=== PATIENT | male | born 1950 | race Caucasian/White ===

== ENCOUNTER 2016-09-04 21:21 | Inpatient (IN) | payer OTHER ==
--- NOTE | ~2016-09-04 | HP ---
Unit #: [id number] #: [id number] Patient: FRANK PLATT [id number] [address] [address] [id number] I MR#: [id number] NAME: FRANK PLATT. ROOM: 461 Age: 66 Sex: M Admission Date: 09/05/2016 : 1950 Attending Physician: Laquita Weston M.D. Primary Care Physician: Ibis Casiano M.D., Ph.D. HISTORY AND PHYSICAL ADMISSION DIAGNOSES 1. Questionable GI bleed. 2. Esophageal cancer. 3. History of hep. C with cirrhosis. 4. Colitis. 5. Active smoker. 6. History of peptic ulcer disease. HISTORY OF PRESENT ILLNESS Mr. Platt is a 66-year-old, gentleman with a history of esophageal cancer, status post chemo, who comes to the emergency room with the complaints of dark stools and some bloody emesis for last day or so. Denies any fever or chills. Denies any chest pain, headache, or dizziness. Denies any abdominal pain or diarrhea. REVIEW OF SYSTEMS So, 12-point review of systems on this patient is basically negative, except as above. PAST MEDICAL HISTORY Significant for esophageal cancer, history of hep. C cirrhosis, and peptic ulcer disease. PAST SURGICAL HISTORY Significant for scopes and IV port placement for chemotherapy. MEDICATIONS Home medication list includes: 1. Keflex. 2. Diflucan. 3. Reglan. 4. Pepcid. ALLERGIES No known drug allergies. SOCIAL HISTORY Unfortunately, he is an active smoker and has been an active smoker all his life. Denies any alcohol or illicit drugs. FAMILY HISTORY Unremarkable. PHYSICAL EXAMINATION Unit #: [id number] #: [id number] Patient: FRANK PLATT GENERAL APPEARANCE: Patient is a 66-year-old, well appearing, gentleman otherwise. VITAL SIGNS: BP 125/77, heart rate 100, respirations 18, and temperature 98.1. HEENT: Head is atraumatic. Pupils equal, round, and reactive to light. Extraocular muscles intact. Oropharynx clear. NECK: Supple. No masses, no JVD, and no bruits. CHEST: Diminished bilaterally. CARDIOVASCULAR: S1 and S2. No murmurs. ABDOMEN: Soft, nontender, and nondistended. Bowel sounds diminished. LOWER EXTREMITIES: No cyanosis, clubbing, or edema. NEUROLOGIC: Patient alert and oriented. Answering questions appropriated. No focal deficits. DIAGNOSTIC STUDIES LABORATORY: AST and ALT elevated at 193 and 109. PT 12.3, INR 1.2, and PTT 29.4. Serial cardiac enzymes negative. White count 10.8, H and H 14 and 42, and platelets 117. Chemistry otherwise unremarkable. IMAGING: CT abdomen and pelvis as well as chest show some worsening metastatic disease with some mediastinal lymphadenopathy and thickening of the colon from ascending colon through the splenic flexure compatible with colitis along with the, again, worsening metastatic adenopathy. No bowel obstruction seen. Metastatic disease at T9 involving the left transverse process and extending in the central canal, which is grossly stable. ASSESSMENT AND PLAN 1. Question of upper GI bleed. Continue IV PPI, status post GI evaluation. Follow up on the plans for scope. 2. History of esophageal, status post chemo, status post IV port. Hematology/oncology has been consulted. 3. History of hep. C cirrhosis. 4. Colitis. Continue Levaquin and Flagyl. 5. Active smoker, counseled on importance of quitting. 6. History of peptic ulcer disease on PPI. 7. GI and DVT prophylaxes on PPI and SCDs. PLAN 1. Follow up on heme/onc input regarding worsening metastatic disease. 2. Follow up on GI plans. 3. Continue IV PPI. 4. Continue IV antibiotics. Dictated by Timmy Bal M.D. OC/shanelle TD: 09/06/2016 09:14 JOB #: [id number] Unit #: [id number] #: [id number] Patient: FRANK PLATT HISTORY AND PHYSICAL X Timmy Bal MD HISTORY AND PHYSICAL
--- NOTE | ~2016-09-04 | OR ---
Unit #: [id number] #: [id number] Patient: FRANK HUTSON [id number] [address] [place], [place] [address] [id number] Bakari MR#: [id number] NAME: FRANK HUTSON. ROOM: [facility] Date of Procedure: 09/11/2016 Admission Date: 09/05/2016 Surgeon: Marline Adam M.D. : 1950 Attending Physician: Laquita Weston M.D. Primary Care Physician: Ibis Casiano M.D., Ph.D. OPERATIVE REPORT PREOPERATIVE DIAGNOSIS Urethral stricture with obstruction. POSTOPERATIVE DIAGNOSIS Urethral stricture with obstruction. PROCEDURES PERFORMED Cystoscopy with dilation of urethral stricture and placement of a 16-Djiboutian Dukes catheter. FINDINGS A bulbourethral stricture and large false passage. It was dilated up to 18-Djiboutian and then a 16-Djiboutian catheter was placed. HISTORY OF PRESENT ILLNESS This is a 66-year-old gentleman, who is currently admitted for esophageal cancer. He is undergoing chemo and radiation. The patient has had no urine output for over 24 hours. A Dukes catheter was placed, but it was obviously not in his bladder. Urology was consulted for his anuria. On the floor, I attempted to place a Dukes catheter. I was unable to do so. I felt fairly dense urethral stricture, so the patient was brought to the operating room for cystoscopy and catheter placement. Informed consent was obtained after risks and benefits were explained. DESCRIPTION OF PROCEDURE Following proper identification, the patient was brought to the cysto suite, where he was placed in a supine position. He was prepped and draped in normal sterile fashion. I began by looking at the patient's urethra up to a fairly dense stricture in his bulbourethra and there was a large false passage, most likely where the previously Dukes catheters had been blown up in his urethra. I was able to get a sensor wire to get past the stricture. I then dilated up to 18-Djiboutian. I was able to then look by scoping into the patient's bladder ensuring that the Sensor wire was in there, and then I placed a 16-Djiboutian Councill tip catheter over the wire. Dark spring urine was obtained. The balloon was blown up in the patient's bladder and he was taken to the recovery room in good condition. Dictated byOvidio Adam M.D. CJG/modl Unit #: [id number] #: [id number] Patient: FRANK HUTSON TD: 09/12/2016 18:59 JOB #: [id number] OPERATIVE REPORT X Joanie Adam MD PROCEDURE OPERATIVE NOTE
--- NOTE | ~2016-09-04 | CR72 ---
[facility] A Service of [facility] & [facility] RADIOLOGY TEXT RESULTS PATIENT: FRANK HUTSON LOCATION: [address] : [birth year] UNIT #: [id number] AGE: [address]: Laquita Weston MD SEX: M ORDER DR: [id number] [facility] [address] [facility]. [place], [place] [address] [id number] I MR#: [id number] Acc #: [id number] NAME: FRANK HUTSON : 1950 SEX: M STUDY DATE/TIME: 09/21/2016 4:37 UNIT: [facility] ROOM: [facility] [place] [place] STUDY DESCRIPTION: CR Chest Single View Portable Attending Physician: Laquita Weston M.D. Ordering Physician: Donald Jaed M.D. Primary Care Physician: Ibis Casiano M.D., Ph.D. MEDICAL IMAGING REPORT This report is preliminary unless electronic signature is present EXAM AP portable chest 09/21/2016 at 04:37. HISTORY Respiratory failure. Shortness of breath. Weakness. Symptoms began 09/05/2016. Colitis. Hepatitis C. Cirrhosis. COMPARISON AP portable chest 09/19/2016. FINDINGS Low volume inspiration. Ill-defined interstitial thickening within both lungs, may be slightly increased in the right perihilar and bibasilar distribution. Esophagogastric stent in place through which a Dobbhoff tube extends, similar to prior. Left arm-approach PICC and right chest wall laxmi catheter unchanged. No definite pleural effusion or pneumothorax. Heart size is stable. IMPRESSION 1. Bilateral interstitial infiltrates again noted, left greater than right. It appears slightly increased in the right fhz-tq-mjatl lung zone compared to 09/19/2016. Dictated by... Aida Scott M.D. THIS IS AN ELECTRONICALLY VERIFIED REPORT Aida Scott M.D. at 09/21/2016 9:58 PM LLH/gz TD: 09/21/2016 13:16 JOB #: [id number] [facility] A Service of [facility] & [facility] RADIOLOGY TEXT RESULTS PATIENT: FRANK HUTSON LOCATION: [address] : [birth year] UNIT #: [id number] AGE: [address]: Laquita Weston MD SEX: M ORDER DR: MEDICAL IMAGING REPORT COPY
--- NOTE | ~2016-09-04 | FU ---
[facility] Nutrition Therapy DATE: 09/18/16 Patient: FRANK HUTSON Physician: LEXI Address: [address] [place] [address] Room/Bed: [address], Zip: [place] [address] Admit Date: 09/05/16 Date of : [birth year] Height: 5 11 Weight: 159 72.5 NUTRITION MONITORING/FOLLOW-UP: Reason: Enteral nutrition follow-up Anthropometrics: Ht: 71", admission wt: 54.4 kg, current wt: 72.5 kg (159 lbs) Weights have ranged from 119-159 lbs since admission, note fluid fluctuations Will restimate nutritional needs based on weight average (63.2 kg) Labs: Glucose 117, Na 134 Meds: Reglan, D5%, Phenergan/Zofran, PPI, KCL, NACL, MGSO4, Levophed I&O's: 1004/410, last BM 09/17 x 2, abdomen distended and tender Skin: No change, generalized-2+ edema noted Re-estimated Nutrition Needs: 4471-9621 kcals per day (30-35 kcals/kg weight average) 76-95 g protein per day (1.2-1.5 g/kg weight average) Fluids consistent with kcal needs or per MD Assessment: Chart reviewed, events noted. See new estimated needs above based on average weights since admission, patient has had fluctuations in weight. Does not appear initial documented BMI of 16.7, BMI appears more consistent with current weight (22.2). Patient remains on high-flow for increased oxygen needs and enteral nutrition now at goal rate with Vital 1.5 @ 55 ml/hr, providing 81% of goal volume the past 24 hours (nutrition goal met) per pump history. 30 ml residuals noted, RN states patient is tolerating feeds. Patient is drinking some PO but not eating solids PO. He is A/O, very poor prognosis, hospice and Da have been consulted. Of note, the patient has refused all ONS. Nutrition diagnosis remains, do not expect it will improve as the patient is not taking PO food; previous nutrition goal related to PO intake no longer relevant. See recs below, will continue to follow. Dx: Inadequate oral intake r/t clinical condition, dx AEB need for enteral nutrition as primary means of nutrient intake - ACTIVE Intervention: None at this time Monitoring, Evaluation and Goals: MET; goals depending on further plan of care 1. EN to provide > 80% goal volume x 24 hours. 2. Lytes, glucose WNL. 3. Prevent unintentional weight loss. [facility] Nutrition Therapy DATE: 09/18/16 Patient: FRANK HUTSON Physician: LEXI Address: [address] [place] [address] Room/Bed: [address], Zip: [place] [address] Admit Date: 09/05/16 Date of : [birth year] Height: 5 11 Weight: 159 72.5 Monitor: Per protocol, criteria to determine if above goals met Recommendations: Continue enteral nutrition with Vital 1.5 @ goal rate of 55 ml/hr as primary means of nutrient intake, as the patient is not taking food PO at this time. Allow PO drinks as desired. Patient has refused all oral nutrition supplements. This enteral nutrition regimen will provide 1980 kcals, 89 g protein and 1003 ml water (meets 100% of nutritional needs). Free water flushes per RD will continue to follow hospital course. If the patient goes to inpatient hospice enteral feeds will be per patient/family wishes. Status: Moderate nutrition risk Respectfully, Lenore Dorman, MANISH, LD Food and Nutritional Services [facility] cc: client file
--- NOTE | ~2016-09-04 | FU ---
[facility] Nutrition Therapy DATE: 09/23/16 Patient: FRANK HUTSON Physician: LEXI Address: [address] [place] [address] Room/Bed: [address], Zip: [place] [address] Admit Date: 09/05/16 Date of : [birth year] Height: 5 11 Weight: 166 75.5 NUTRITION MONITORING/FOLLOW-UP: Reason: PT SEEN FOR FOLLOW-UP/ENTERAL NUTRITION SUPPORT DX: COLITIS, UPPER GI BLEED Anthropometrics: 5'11", WT: 166# (75 KG), BMI: 23.1 -WEIGHTS HAVE RANGED 119-166# Labs: GLU: 189, BUN: 70, ALB: 2.0, AST: 273, ALT: 300, K+:5.4, NA+:131 Meds: SOLU-MEDROL, PROTONIX, PHENERGAN, ZOFRAN, NACL I&O's: 1341/7, 1 BM NOTED Skin: ISSUES NOTED EDEMA: PEDAL/ANKLE 2+ PITTING EDEMA; UPPER LEGS GENERALIZED EDEMA Estimated Nutrition Needs: 7624-7946 KCAL 76-95 G PRO Assessment: CHART REVIEWED AND EVENTS NOTED. PT SEEN FOR ENTERAL NUTRITION SUPPORT FOLLOW-UP. PT CURRENTLY RECEIVING FULL LIQUID DIET, ALTERNATIVE NUTRITION SUPPORT CURRENTLY OFF 2' HIGH RESIDUALS NOTED (~250-800 ML/RESIDUALS). PER RN AND CHART, PLANS FOR PT/FAMILY TO MEET WITH HOSPICE LATER TODAY. NO FAMILY IN ROOM AT TIME OF VISIT. THIS RD ENCOURAGED SLOW GRADUAL PO INTAKE + SUPPLEMENT INTAKE, PT AGREED TO GLUCERNA SHAKES BID. PT REPORTED NO DIET QUESTIONS AT THIS TIME. RD TO CONTINUE TO FOLLOW. SEE RECOMMENDATIONS BELOW. Dx: INADEQUATE ORAL INTAKE R/T CURRENT CLINICAL CONDITION AEB NEED FOR ENTERAL NUTRITION PRIMARY MEANS OF NUTRITION.-IN PROGRESS Intervention: 1. ENTERAL NUTRITION SUPPORT CURRENTLY OFF 2. FULL LIQUID DIET 3. GLUCERNA SHAKES BID Monitoring, Evaluation and Goals: GOALS NOT MET 1. PO INTAKE; CONSUME >50% OF MEALS/SUPPLEMENTS W/NO C/O N/V/D 2. ENTERAL NUTRITION SUPPORT; PROVIDE ~80-100% ESTIMATED NUTRIENT NEEDS 3. LABS; WNL 4. GI; PROMOTE REGULAR GI FUNCTION MONITOR: -PO INTAKE/APPETITE [facility] Nutrition Therapy DATE: 09/23/16 Patient: FRANK Vo CARYL Physician: LEXI Address: [address] [place] [address] Room/Bed: [address], Zip: [place] [address] Admit Date: 09/05/16 Date of : [birth year] Height: 5 11 Weight: 166 75.5 -DIET ADVANCEMENT -TF INITIATION -TF RATE/RESIDUALS -WEIGHTS -LABS Recommendations: 1. ORDER BIJAL GLUCERNA SHAKES BID W/MEALS 2. ONCE PT ABLE TO TOLERATE PO INTAKE, ADVANCE DIET TOLERATED TO REGULAR 3. IF PT CONTINUES MINIMAL PO INTAKE, RE-START ENTERAL NUTRITION SUPPORT OF VITAL 1.5 @ 20 ML/HR, ADVANCE 10 ML q 8 HOURS TO GOAL RATE OF 55 ML/HR -PROVIDES 1980 KCAL, 89 G PRO, 1003 ML FREE H20 FLUSHES ADD FREE H20 FLUSHES PER MD 2' HYPONATREMIA NOTED RD WILL F/U PER PROTOCOL PT IS MOD/SEVERELY COMPROMISED Respectfully, RYAN PANCHAL MS, RD, LD Food and Nutritional Services [facility] cc: client file
--- NOTE | ~2016-09-04 | FU ---
[facility] Nutrition Therapy DATE: 09/10/16 Patient: FRANK HUTSON Physician: LEXI Address: [address] [place] [address] Room/Bed: [address] [place] [address], Zip: [place] [address] Admit Date: 09/05/16 Date of : [birth year] Height: 5 11 Weight: 119 54.43 NUTRITION MONITORING/FOLLOW-UP: Reason: NUTRITION FOLLOW UP Anthropometrics: HT: 5'11" ADM WT: 54.43 KG BMI: 16.7 IBW: 78.2 KG, 70% IBW Labs: K+ 3.1 Cl- 112 Gluc 116 Alb 1.7 AST 184 ALT 113 Meds: D5%, protonix, zofran, phenergan, NaCl I&O's: 120/325, last BM 09/09 Skin: noted, no changes Edema: none noted Estimated Nutrition Needs: 1684-9244 kcals (35-40 kcals/kg) 81-108 grams protein (1.5-2.0 grams/kg) Diet: Full liquid Assessment: Chart reviewed, events noted. Per MD note on 09/09, pt has a mild ileus. Pt has was placed on clear liquids, now back on full liquids with Ensure ordered QID. clinical trials manager and RN both report that the pt is drinking Ensure slowly, and not consuming anything else thus far. RD spoke with the pt at bedside. Pt reports that if he tolerates this Ensure, he will order another one. Pt is agreeable to try Magic cup as an additional supplement. Pt will likely not eat enough on a full liquid diet to meet his increased nutrient needs. Dx: Inadequate protein-energy intake RT increased nutrient needs, cancer AEB weight loss, poor intake, 20% body weight loss in 2-3 months, BMI 16.7, 70% IBW. Intervention: 1. Full liquid diet 2. Advance to regular diet as tolerated/ ordered by MD 3. Ensure QID 4. Magic cup TID Monitoring, Evaluation and Goals: GOALS NOT MET 1. Oral intake; tolerate >50-75% meals and supplements 2. Weight; promote weight gain, prevent further weight loss [facility] Nutrition Therapy DATE: 09/10/16 Patient: FRANK HUTSON Physician: NIGKUS Address: [address] [place] [address]/Bed: [address] [place] [address], Zip: [place] [address] Admit Date: 09/05/16 Date of : [birth year] Height: 5 11 Weight: 119 54.43 3. Skin; prevent breakdown 4. GI; promote regular GI function Recommendations: 1. Continue full liquid diet as tolerated. If the pt continues to tolerate full liquids, consider advancing to a low fiber diet as tolerated. 2. Continue Ensure QID (strawberry) and add Magic Cup TID for supplemental nutrition. 3. Consider enteral nutrition if appropriate per pt/ MD discretion. See RD nutrition assessment dated 09/05/16 for enteral nutrition recommendations if indicated. Status: Pt is at moderate-severe nutritional risk. RD will continue to follow. Respectfully, GRUPO SANON RD, LD Food and Nutritional Services [facility] cc: client file
--- NOTE | ~2016-09-04 | US140 ---
[facility] A Service of [facility] & [facility] RADIOLOGY TEXT RESULTS PATIENT: FRANK HUTSON LOCATION: [address] : [birth year] UNIT #: [id number] AGE: [address]: Laquita Weston MD SEX: M ORDER DR: [id number] [facility] [address] [place], [place] [address] [id number] MR#: [id number] Acc #: [id number] NAME: FRANK HUTSON : 1950 SEX: M STUDY DATE/TIME: 09/16/2016 7:43 UNIT: [facility] ROOM: [facility] STUDY DESCRIPTION: US UE Veins Unilat or Ltd Stdy Attending Physician: Laquita Weston M.D. Ordering Physician: Ayaka Baires M.D. Primary Care Physician: Ibis Casiano M.D., Ph.D. MEDICAL IMAGING REPORT This report is preliminary unless electronic signature is present EXAM Right upper extremity venous duplex Doppler INDICATION Right upper extremity swelling. Right-sided port catheter. Swelling for 2 days. FINDINGS Hong-scale and color Doppler ultrasound of the right upper extremity was performed. There is no deep vein thrombus in the right upper extremity. The right internal jugular vein, subclavian vein, axillary vein, and brachial veins are patent. There is a superficial venous thrombus in the right cephalic vein. Remaining superficial veins are patent. IMPRESSION 1. Negative for deep vein thrombosis. 2. Superficial venous thrombus in the right cephalic vein. STAT * RESULT Dictated by... Dex Montero M.D. THIS IS AN ELECTRONICALLY VERIFIED REPORT Dex Montero M.D. at 09/16/2016 2:03 PM Dilma TD: 09/16/2016 09:37 JOB #: [id number] MEDICAL IMAGING REPORT COPY
--- NOTE | ~2016-09-04 | CO ---
Unit #: [id number] #: [id number] Patient: FRANK HUTSON [id number] [address] [place], [place] [address] [id number] I MR#: [id number] NAME: FRANK HUTSON ROOM: 461 Age: 66 Sex: M Admission Date: 09/05/2016 : 1950 Attending Physician: Laquita Weston M.D. Primary Care Physician: Ibis Casiano M.D., Ph.D. CONSULTATION REPORT HISTORY OF PRESENT ILLNESS He is a very pleasant gentleman. He is 66 years old with a diagnosis of esophageal cancer that is metastatic with lymph node involvement. He has been on chemotherapy per Dr. Ibis Casiano. He has a stent placed in the esophagus and came into the hospital with a couple of days of nausea and vomiting, unable to keep anything ingest. The emesis that he had was black tarry-looking per them, it sounds like coffee-grounds emesis, and then he came into the hospital. In the emergency room, he was seen evaluated and admitted for further care. He has not been febrile per the family at home. He has not been shock. He has been making urine, which is good and has had no further black tarry emesis. GI has been asked to see the patient. The patient has stable vital signs here and has no fevers, chills, or sweats. PAST MEDICAL HISTORY 1. Esophageal cancer. 2. He is positive for severe protein malnutrition. 3. He is positive for colitis that we had noted on the imaging that was done when he was admitted to the hospital. 4. He has a history of GERD complaints and acid reflux since he has had an esophageal stent. SOCIAL HISTORY No active alcohol or tobacco use. His is present in the room. FAMILY HISTORY Noncontributory to current illness. REVIEW OF SYSTEMS Positive for abdominal pain. Positive for nausea and vomiting and positive for inability to keep anything ingested. A 12-points, otherwise negative on review of systems. PHYSICAL EXAMINATION GENERAL: Shows a well-developed, well-nourished gentleman in no acute distress. HEENT: His eyes show no scleral icterus. Pupils are equal. Mouth is moist. Hearing is intact. No thrush in the mouth was noted. VITAL SIGNS: His temperature is 98.5, blood pressure 119/70, heart rate 92, 96% saturation on room air, respirations 18. LUNGS: Clear. Equal breath sounds. HEART: Regular rate and rhythm. Not tachycardic. No peripheral edema. ABDOMEN: Soft, today just diffuse tenderness however. Unit #: [id number] #: [id number] Patient: FRANK HUTSON SKIN: No rashes, ulcers, or nodules. LYMPHATIC: No palpable adenopathy. NEUROLOGIC: He is afocal. PSYCHIATRIC: Answers questions appropriately, but appears ill currently. ASSESSMENT Very pleasant with diagnosis of esophageal cancer. PLAN Plan is to go ahead and see if we can get him hydrated and defer to GI. He does not appear febrile currently. He does not appear septic, but does appear a bit dehydrated and has concerning complaints of coffee-grounds emesis. We are consulted for Dr. Reza. Dictated by... Apple Garces/oriana TD: 09/06/2016 03:12 JOB #: [id number] CONSULTATION REPORT X X CONSULTATION REPORT
--- NOTE | ~2016-09-04 | CR72 ---
[facility] A Service of [facility] RADIOLOGY TEXT RESULTS PATIENT: FRANK HUTSON LOCATION: [address] : [birth year] UNIT #: [id number] AGE: [address]: Laquita Weston MD SEX: M ORDER DR: [id number] [facility] [address] [place], [place] [address] [id number] I MR#: [id number] Acc #: [id number] NAME: FRANK HUTSON : 1950 SEX: M STUDY DATE/TIME: 09/14/2016 04:37 UNIT: [facility] ROOM: [facility] STUDY DESCRIPTION: CR Chest Single View Portable Attending Physician: Laquita Weston M.D. Ordering Physician: Ayaka Baires M.D. Primary Care Physician: Ibis Casiano M.D., Ph.D. MEDICAL IMAGING REPORT This report is preliminary unless electronic signature is present EXAM Portable chest, 09/14 at 04:37 INDICATION Hypoxia, shortness of air. Respiratory failure. History of esophageal cancer, cirrhosis and smoking. FINDINGS AP portable views of the chest are compared with 09/13/2016. Left arm PICC in the SVC. Port-A-Cath tip in the SVC. Heart size stable. There is emphysema with coarse bilateral infiltrates which are not appreciably changed and probably reflect pneumonia. Edema could be present as well. No pneumothorax. Lower esophageal stent is again seen. Dictated by... Josh Sharp Jr., M.D. THIS IS AN ELECTRONICALLY VERIFIED REPORT Josh Sharp Jr., M.D. at 09/14/2016 9:33 PM LENCHO/akren TD: 09/14/2016 17:08 JOB #: [id number] MEDICAL IMAGING REPORT COPY
--- NOTE | ~2016-09-04 | CO ---
Unit #: [id number] #: [id number] Patient: FRANK PLATT [id number] [address] [place], [place] [address] [id number] MR#: [id number] NAME: FRANK PLATT ROOM: [facility] Age: 66 Sex: M Admission Date: 09/05/2016 : 1950 Attending Physician: Laquita Weston M.D. Primary Care Physician: Ibis Casiano M.D., Ph.D. CONSULTATION REPORT REASON FOR CONSULTATION Probable IL. HISTORY OF PRESENT ILLNESS Mr. Platt is a 66-year-old white male whom we are asked to see because of elevated troponin levels. The patient is a very poor historian because he is acutely ill, cannot concentrate on the questions, and probably does not know the true extent of his illness. He thinks he is ready to and nothing can be done about his illness. His most recent admission to this hospital on 09/04/2016 occurred because of nausea, vomiting, dark black tarry vomitus secondary to upper GI bleeding, which was thought to be secondary to esophageal cancer which is being treated with chemoradiation and has already metastasized. He is also known to have colitis, history of hepatitis C with cirrhosis, and suffers from pancytopenia. Over the last few months, his nutritional status has deteriorated with severe hypoproteinemia, anemia, and is compounded by severe nausea with poor oral intake. The patient was transferred to the intensive care unit yesterday because of sudden onset of shortness of breath, dropping blood pressure thought to be secondary to sepsis. Evaluation revealed mildly elevated serum troponin levels and we were asked to see him. When asked about chest discomfort, he describes tightness and pressure like sensation in the lower anterior chest, which does not radiate to the neck, jaw, and there was no associated diaphoresis, palpitations, or dizziness. He cannot provide any further details about the chest pain. There is no history of previous IL, hypertension, diabetes mellitus, but he has noticed leg edema over the last few months. There is no history of strokes or transient ischemic attack. SOCIAL HISTORY AND PERSONAL HISTORY He has continued to smoke until recently. His alcohol history is not known. FAMILY HISTORY Not available and no family members are present at the bedside. PHYSICAL EXAMINATION GENERAL: Reveals an emaciated, middle-aged male, looks scarred, just make at rest with head elevated to 30 degrees. VITAL SIGNS: Blood pressure on intravenous Levophed drip is 115/60, heart rate is 110 beats per minute and regular. CARDIAC: Shows apical impulse is palpable in the fifth intercostal space Unit #: [id number] #: [id number] Patient: FRANK PLATT in midclavicular line and is normal, both heart sounds are normal. No rubs or clicks are audible. There is no murmur. CHEST: Shows diminished breath sounds in both lung welch. There are no rales or rhonchi. ABDOMEN: Shows distended anterior abdominal wall. Bowel sounds are hyperactive with borborygmi. There is no ascites. RECTAL: Not done. TRENCH DIGGER: Shows the patient is alert, awake, and is moving all 4 extremities. DIAGNOSTIC STUDIES CARDIOVASCULAR STUDIES: EKG on 09/04/2016 showed normal sinus rhythm, and for lateral wall myocardial infarction of undetermined age. On 09/13/2016, EKG showed low voltage limb leads, nondiagnostic Q-waves in inferolateral leads and no acute ischemic changes are noted. Repeat EKG on 09/13/2016 shows normal sinus rhythm, probable old inferior wall myocardial infarction and T-wave inversion in V1 and V2 suggestive of septal wall ischemia. Hemoglobin was 9.3 on 09/11/2016 and is 10.1 today. White blood count had increased from 2900 [place] [address]19 at the time of dictation, platelet count remains very low at 41,000. Serum creatinine is 1.1, sodium 133, potassium has increased from 3.4 to 3.9 today, serum magnesium remains low at 1.6. Troponin level was 1.35 on 09/13/2016 and repeat levels are not available. Serum BNP was 524. IMAGING STUDIES: Chest x-ray on 09/13/2016 showed normal sinus heart, increased pulmonary vascularity consistent with pulmonary edema without alveolar infiltrates, serum iron is very low. DIAGNOSES 1. Shock probably septic in origin. 2. Possible anterior wall non-ST elevation myocardial infarction. 3. Ordering for lateral wall myocardial infarction. 4. Cor pulmonale. 5. Mild fluid overload on chest x-ray. 6. Esophageal cancer with metastatic disease, on chemoradiation. 7. Malnutrition. 8. Severe anemia with pancytopenia. PLAN An echocardiogram was done yesterday, which showed left ventricular ejection fraction of 55% to 60%. Right ventricle is severely dilated probably related to longstanding COPD. There was no evidence of aortic stenosis or aortic regurgitation, tricuspid and mitral valve function could not be evaluated because of poor quality of the study. There was no evidence of pericardial effusion or tamponade. I suggest that we continue his hemodynamic support with intravenous Levophed, antibiotics. I have added aspirin as only antiplatelet agent in the presence of suspected acute myocardial infarction because of severe thrombocytopenia and in view of recent GI bleed, heparin or other dihydropyridine, antiplatelet agents would not be started. The patient was given intravenous Bumex yesterday with effective diuresis. His leg edema appears to be secondary to hypoproteinemia related to malnutrition rather than fluid overload. Intraoperative management would be continued given his comorbidity issues and overall prognosis appears guarded. I have discussed this with the patient's family when they are available. Thank you very much for associating us in the care of Mr. Platt. Unit #: [id number] #: [id number] Patient: FRANK PLATT Dictated by... Apple MorrisonU/oriana TD: 09/15/2016 04:24 JOB #: [id number] CC: Apple Zamora M.D. Kusum Nigam, M.D. CONSULTATION REPORT X Douglas Boyer MD X CONSULTATION REPORT
--- NOTE | ~2016-09-04 | CR72 ---
[facility] A Service of [facility] & [facility] RADIOLOGY TEXT RESULTS PATIENT: FRANK HUTSON LOCATION: [address] : [birth year] UNIT #: [id number] AGE: [address]: Laquita Weston MD SEX: M ORDER DR: [id number] [facility] [address] [place], [place] [address] [id number] I MR#: [id number] Acc #: [id number] NAME: FRANK HUTSON. : 1950 SEX: M STUDY DATE/TIME: 09/13/2016 UNIT: [facility] ROOM: [facility] STUDY DESCRIPTION: CR Chest Single View Portable Attending Physician: Laquita Weston M.D. Ordering Physician: Laquita Weston M.D. Primary Care Physician: Ibis Casiano M.D., Ph.D. MEDICAL IMAGING REPORT This report is preliminary unless electronic signature is present EXAM Portable chest. DATE OF EXAM 09/13/2016, at 04:36. INDICATIONS Hypoxia, shortness of air and weakness worsening today. History of esophageal cancer. FINDINGS AP portable chest compared with 08/30/2016. The heart size stable. Esophageal stent in place. Left arm PICC in the SVC. There is emphysema. Patchy bilateral infiltrates are concerning for pneumonia, although, this could be an atypical presentation of edema. There is some elevation of the right hemidiaphragm. There is no pneumothorax. Dictated by... Josh Sharp Jr., M.D. THIS IS AN ELECTRONICALLY VERIFIED REPORT Josh Sharp Jr., M.D. at 09/13/2016 11:01 PM LENCHO/marek TD: 09/13/2016 18:14 JOB #: [id number] MEDICAL IMAGING REPORT COPY
--- NOTE | ~2016-09-04 | CR72 ---
[facility] A Service of [facility] & [facility] RADIOLOGY TEXT RESULTS PATIENT: FRANK HUTSON LOCATION: [address] : [birth year] UNIT #: [id number] AGE: [address]: Laquita Weston MD SEX: M ORDER DR: [id number] [facility] [address] [place], [place] [address] [id number] I MR#: [id number] Acc #: [id number] NAME: FRANK HUTSON. : 1950 SEX: M STUDY DATE/TIME: 09/19/2016 04:48 UNIT: [facility] ROOM: [facility] STUDY DESCRIPTION: CR Chest Single View Portable Attending Physician: Laquita Weston M.D. Ordering Physician: Donald Jade M.D. Primary Care Physician: Ibis Casiano M.D., Ph.D. MEDICAL IMAGING REPORT This report is preliminary unless electronic signature is present EXAM Portable chest 09/19/2016 at 04:48. INDICATIONS Ventilator patient. Shortness of air. Respiratory failure. COMPARISON AP portable chest is compared with 09/15/2016. FINDINGS Feeding tube in the stomach or duodenal bulb. Left side PICC in the SVC. Heart size stable. There is emphysema. Bilateral interstitial infiltrates are much improved. There is some potential developing alveolar infiltrate at the left base. Continued follow up recommended. No pneumothorax. Dictated by... Josh Sharp Jr., M.D. THIS IS AN ELECTRONICALLY VERIFIED REPORT Josh Sharp Jr., M.D. at 09/19/2016 12:40 PM RLK/bella TD: 09/19/2016 10:16 JOB #: [id number] MEDICAL IMAGING REPORT COPY
--- NOTE | ~2016-09-04 | A ---
[facility] DATE: 09/05/16 Patient: FRANK HUTSON Physician: LEXI Address: [address] [place] [address] Room/Bed: [address] [place] [address], Zip: [place] [address] Admit Date: 09/05/16 Date of : [birth year] Height: 5 11 Weight: 119 54.43 NUTRITIONAL ASSESSMENT: REASON: Consult for malnutrition 66 yo male admitted for vomiting dark black/ brown, colitis PMH: Esophageal cancer s/p chemo and esophageal stenting, colitis Anthropometrics: Ht: 5'11" Adm wt: 54.43 kg BMI: 16.7 Labs: Na+ 134 Cl- 97 Gluc 113 Alb 3.0 AST 183 ALT 109 Meds: D5%, protonix, zofran, dilaudid, levaquin (IV), NaCl I/O & Bowel function: not available Skin Integrity: not available Estimated Nutrition Needs: Increased due to cancer/ chemo/ malnutrition 6810-4731 kcals (35-40 kcals/kg) 81-108 grams protein (1.5-2.0 grams/kg) Diet: Full liquid Assessment: Chart reviewed, events noted. RD consulted to see the pt for malnutrition. Pt has a recent h/o esophageal cancer, diagnosed just last month in July [address] spoke with the pt at bedside. Pt was sleepy, answered most questions with one-word answers. Pt was covered in several blankets, and it was difficult for RD to assess the pt's physical nutritional status. Pt presents underweight with BMI 16.7 and 70% IBW. Pt was able to report ~30# weight loss since June (20% weight loss in 2-3 months = severe weight loss). Pt just had an esophageal stent placed, and reports that he had been eating solid food prior to admission, with the last day of solid food being day before admission. Pt does have somewhat of an appetite, and wishes to have solid food. Pt is currently on a full liquid diet, as he was admitted with colitis and black/ brown vomit. Pt reports fair intake prior to admission. Pt is agreeable to Ensure supplements. RD discussed the pt's high protein and calorie needs with him, and he nodded his head in understanding. RD will continue to follow the pt. Dx: Severe protein calorie malnutrition RT esophageal cancer, PMH AEB BMI 16.7, 70% IBW, fair intake prior to admission, 20% body weight loss in 2-3 months. Intervention: [facility] DATE: 09/05/16 Patient: FRANK HUTSON Physician: LEXI Address: [address] [place] [address] Room/Bed: [address] [place] [address], Zip: [place] [address] Admit Date: 09/05/16 Date of : [birth year] Height: 5 11 Weight: 119 54.43 1. Full liquid diet 2. Advance diet as tolerated Monitoring, Evaluation and Goals: 1. Oral intake; tolerate >75% of meals and supplements 2. Labs; WNL 3. Weight; prevent further weight loss, promote gain Recommendations: 1. Once medically feasible, advance the pt to a low fiber diet as tolerated due to colitis. 2. Ensure (any flavor) QID for supplemental nutrition. 3. If the pt does not consume at least 75% of meals and supplements, would consider obtaining enteral access and starting nocturnal enteral nutrition (continuing PO intake throughout the day) to meet 50% of his estimated needs. -If enteral nutrition ordered by MD, recommend starting Jevity 1.5 @ 20 mL/hr x 12 hrs (8P-8A). Increase by 10 mL q 12 hrs as tolerated to goal of 55 mL/hr (will be at goal by third night). This would provide: 990 kcals/ 42 grams protein/ 502 mL free H20 PLEASE NOTE: THIS PT IS AT RISK FOR REFEEDING SYNDROME WITH MALNUTRITION IDENTIFIED. IF ENTERAL NUTRITION IS STARTED, INCREASE SLOWLY PER RD RECS AND MONITOR ELECTROLYTES/ GLUCOSE LEVELS Pt is at moderate-severe nutritional risk. RD will follow hospital course. Respectfully, GRUPO SANON, MANISH, LD [facility] cc: client file
--- NOTE | ~2016-09-04 | CR72 ---
[facility] A Service of [facility] & [facility] RADIOLOGY TEXT RESULTS PATIENT: FRANK HUTSON LOCATION: [address] : [birth year] UNIT #: [id number] AGE: [address]: Laquita Weston MD SEX: M ORDER DR: [id number] [facility] [address]. [place], [place] [address] [id number] I MR#: [id number] Acc #: [id number] NAME: FRANK HUTSON : 1950 SEX: M STUDY DATE/TIME: 09/22/2016 4:56 UNIT: [facility] ROOM: [facility] STUDY DESCRIPTION: CR Chest Single View Portable Attending Physician: Laquita Weston M.D. Ordering Physician: Donald Jade M.D. Primary Care Physician: Ibis Casiano M.D., Ph.D. MEDICAL IMAGING REPORT This report is preliminary unless electronic signature is present EXAM AP portable chest 09/22/2016 04:56 HISTORY 66-year-old male with cough, shortness of breath and respiratory failure. Symptoms began 09/05/2016. Additional history of colitis. History of esophageal cancer with metastatic disease. Hepatitis C. Previous myocardial infarction. COMPARISON AP portable chest 09/21/2016. FINDINGS Emphysematous and fibrotic changes are demonstrated within both lungs, greatest in the left base. Airspace disease in the left lower lobe is not thought to be significantly changed. Right chest wall Jkoy-L-Ouqbowjr, Dobbhoff tube, distal esophageal stent, and left arm approach PICC appear unchanged. IMPRESSION Emphysematous changes with superimposed airspace disease in the left lower lobe not thought to be significantly changed. Supporting lines and tubes appear stable. No visible pneumothorax. Dictated by... Aida Scott M.D. THIS IS AN ELECTRONICALLY VERIFIED REPORT Aida Scott M.D. at 09/22/2016 10:02 PM DONNELL/hardy TD: 09/22/2016 08:40 [facility] A Service of [facility] & [facility] RADIOLOGY TEXT RESULTS PATIENT: FRANK HUTSON LOCATION: [address] : [birth year] UNIT #: [id number] AGE: [address]: Laquita Weston MD SEX: M ORDER DR: JOB #: [id number] MEDICAL IMAGING REPORT COPY
--- NOTE | ~2016-09-04 | CO ---
Unit #: [id number] #: [id number] Patient: FRANK PLATT [id number] [facility] [address] [facility]. [place], [place] [address] [id number] I MR#: [id number] NAME: FRANK PLATT. ROOM: [facility] Age: 66 Sex: M Admission Date: 09/05/2016 : 1950 Attending Physician: Laquita Weston M.D. Primary Care Physician: Ibis Casiano M.D., Ph.D. Consultation Date: 09/19/2016 CONSULTATION REPORT REASON FOR CONSULTATION Decision-making capacity. HISTORY OF PRESENT ILLNESS Cecilia Platt is a 66-year-old white male, seen in room #[address] [facility] on 09/19/2016. The patient interviewed by himself, pleasant, cooperative. During interview, the patient was eating Jello, has IV. The patient made good eye contact and able to give coherent history. The patient understand about his illness and also partly prognosis. The patient reports that "I want to live." The patient reported I want everything to be done. The patient denied any depression or any suicidal or homicidal ideation or any psychotic symptom, but feeling somewhat anxious, sad, dysphoric, because he is in the hospital. The patient was alert and oriented to time, place, and person. PAST PSYCHIATRIC HISTORY Unremarkable. MEDICAL HISTORY Remarkable for history of RI, history of esophageal cancer, malnutrition. MEDICATION Please refer to H and P. FAMILY HISTORY AND SOCIAL HISTORY The patient has a good support system. No history of any abuse. No history of any substance abuse known at this time. REVIEW OF SYSTEMS Complete review of systems unremarkable. MENTAL STATUS EXAMINATION General appearance, the patient dressed in hospital attire, sitting in a propped up position, eating his dinner. The patient was cooperative. Made good eye contact. Attention span and concentration, fair. Speech, regular rate and coherent. Oriented in time, place, and person. Mood and affect were anxious, nervous, sad, dysphoric, but able to smile. Thought process, coherent and goal directed. Thought content, the patient denied any thoughts of harming self or others or any psychotic symptom. Recent and remote memory, fair. Language, able to name object, repeat phrases. Fund of knowledge, fair. Insight and judgment, fair. DIAGNOSES Psychiatric: Mood disorder, not otherwise specified, F32.9; anxiety Unit #: [id number] #: [id number] Patient: FRANK PLATT disorder, not otherwise specified. Secondary diagnosis: Deferred. Medical diagnosis: Please refer to H and P. Stressors: Psychosocial stressor. ASSESSMENT/PLAN 1. Supportive psychotherapy and psychoeducation provided to the patient. 2. Discussed with family about the patient's medical condition. Based on the current examination, the patient is able to make informed medical decision at this time, unable to comment about competency as this is a legal matter. The patient at this time reporting that he wants to live and everything should be done for that. The patient reports that he is confused as different doctors talked to him, therefore recommending for the primary doctor Dr. Weston to talk to the patient gathering all the information from all the physicians and consultants and present in a coherent fashion about his illness and prognosis and based on that, the patient can make a determination, what decision he wants to make, but at this time he wants everything to be done. Also, recommending social work associate consult for renewing. The patient has a living will. Please feel free to call if any questions, telephone #[phone]. Dictated by... Apple Siegel/oriana TD: 09/19/2016 21:47 JOB #: [id number] CONSULTATION REPORT X Alvin Stanley MD X CONSULTATION REPORT
--- NOTE | ~2016-09-04 | CR6 ---
[facility] A Service of [facility] & [facility] RADIOLOGY TEXT RESULTS PATIENT: FRANK HUTSON LOCATION: [place] [address]- : [birth year] UNIT #: [id number] AGE: [address]: Laquita Weston MD SEX: M ORDER DR: [id number] [facility] [address] [facility]. [place], [place] [address] [id number] MR#: [id number] Acc #: [id number] NAME: FRANK HUTSON : 1950 SEX: M STUDY DATE/TIME: 09/08/2016 18:19 UNIT: [facility] ROOM: [facility] STUDY DESCRIPTION: CR Abdomen Portable Sng View Attending Physician: Laquita Weston M.D. Ordering Physician: Laquita Weston M.D. Primary Care Physician: Ibis Casiano M.D., Ph.D. MEDICAL IMAGING REPORT This report is preliminary unless electronic signature is present EXAM Portable abdomen, 2 views, 09/08/2016 HISTORY Abdomen pain, nausea, vomiting and diarrhea for 5 days. History of esophageal carcinoma and chemotherapy. FINDINGS 2 views of the abdomen demonstrate mild gaseous distension of the small and large bowel which appears fairly diffuse, characteristic of ileus. No bowel obstruction or free air is seen. Surgical clips right upper quadrant. Numerous granulomatous calcifications in the spleen. A stent traverses the distal esophagus. The bony structures are normal. IMPRESSION Mild gas distension of the small and large bowel characteristic of ileus. No evidence of bowel obstruction or free air. Dictated by... Jesús Sequeira M.D. THIS IS AN ELECTRONICALLY VERIFIED REPORT Jesús Sequeira M.D. at 09/09/2016 4:20 PM KRT/[place] TD: 09/09/2016 02:03 JOB #: [id number] MEDICAL IMAGING REPORT COPY
--- NOTE | ~2016-09-04 | CO ---
Unit #: [id number] #: [id number] Patient: FRANK HUTSON [id number] [address] [place], [place] [address] [id number] I MR#: [id number] NAME: FRANK HUTSON. ROOM: 461 Age: 66 Sex: M Admission Date: 09/05/2016 : 1950 Attending Physician: Laquita Weston M.D. Primary Care Physician: Ibis Casiano M.D., Ph.D. CONSULTATION REPORT REASON FOR CONSULTATION GI bleed. HISTORY OF PRESENTING ILLNESS The patient is known to our practice for a recent EGD, which showed esophageal cancer in July. The patient has been following Oncology, had chemotherapy on Thursday, had a recent stent placement on Thursday, and generally he was doing well until yesterday when he began to have persistent nausea and vomiting, which he reports was a dark brown or black color. He states his stools have been similar in nature. He states he hurts all over and unable to quantify as his abdomen is worse than anything else. He says that it hurts to even touch him. At this time, he really is just asking for water. He is declining any further interventions with endoscopy right now. PAST MEDICAL HISTORY Cirrhosis, hepatitis C, esophageal cancer. ALLERGIES None known. MEDICATIONS Home medications per previous discharge summary include lorazepam, Colace, MiraLAX, diclofenac, Protonix. SOCIAL HISTORY The patient is a reformed smoker. He is a reformed drinker. Denies any illicit drugs. FAMILY HISTORY Notable for mom with type 2 diabetes. REVIEW OF SYSTEMS A complete 10-point review of systems is completed and negative except as mentioned in the HPI. PHYSICAL EXAMINATION GENERAL: The patient is comfortable. Does not appear to be in any distress; however, states he does have pain all over. VITAL SIGNS: Temperature is 98.3, pulse 95, respirations 18, blood pressure is 107/67. HEENT: PERRLA. NECK: Supple. CARDIAC: S1 and S2. Unit #: [id number] #: [id number] Patient: FRANK HUTSON LUNGS: Clear to auscultation. ABDOMEN: Soft, rounded. Mild generalized tenderness. Positive bowel sounds. NEUROLOGIC: The patient is alert, awake, and oriented. DIAGNOSTIC STUDIES IMAGING STUDIES: CT abdomen and pelvis was completed. It did show thickening of the rectosigmoid colon as well as ileum. LABORATORY RESULTS: AST and ALT are 183 and 109 respectively, alkaline phosphatase is 82. Lactic was 2.3. White count is 10.3, hemoglobin is 14, hematocrit is 42, platelets are 117. ASSESSMENT AND PLAN 1. Colitis. We will continue antibiotics and supportive care for now. 2. Nausea and vomiting with possible upper gastrointestinal bleed. We will start a Protonix drip. The patient at this time declines endoscopy. We will resume full liquid diet. Monitor H and H closely. 3. Esophageal cancer, managed by Dr. Casiano. Thank you for this interesting consult. We will continue to follow along. Dictated by... Sharon Albert A.P.R.N. for Apple Meredith/oriana TD: 09/06/2016 01:57 JOB #: [id number] CONSULTATION REPORT X X CONSULTATION REPORT
--- NOTE | ~2016-09-04 | CR72 ---
[facility] A Service of [facility] & [facility] RADIOLOGY TEXT RESULTS PATIENT: FRANK HUTSON LOCATION: [place] [address] : [birth year] UNIT #: [id number] AGE: [address]: Laquita Weston MD SEX: M ORDER DR: [id number] [facility] [address] [facility]. [place], [place] [address] [id number] I MR#: [id number] Acc #: [id number] NAME: FRANK HUTSON. : 1950 SEX: M STUDY DATE/TIME: 09/23/2016 4:26 UNIT: [facility] ROOM: [facility] STUDY DESCRIPTION: CR Chest Single View Portable Attending Physician: Laquita Weston M.D. Ordering Physician: Donald Jade M.D. Primary Care Physician: Ibis Casiano M.D., Ph.D. MEDICAL IMAGING REPORT This report is preliminary unless electronic signature is present EXAM AP portable chest DATE: 09/23/2016 04:26 HISTORY Respiratory failure. Colitis. Esophageal cancer with metastatic disease. Shortness of breath with cough and respiratory failure, symptoms began 18 days ago, 09/05/2016. Additional history of hepatitis C, previous myocardial infarction. Smoking history. COMPARISON AP portable chest 09/22/2016 FINDINGS Emphysematous changes. Left basilar interstitial type infiltrates unchanged with probable mild right basilar atelectasis. Findings are improved, however, when compared to a more remote chest radiograph from 09/15/2016. Stent is seen the esophagogastric junction through which extends an enteric tube. Left arm-approach PICC and right chest wall Mign-v-vnrqecgh appear stable in position. No pneumothorax is seen. IMPRESSION 1. Left basilar interstitial type infiltrate unchanged with probable mild right basilar atelectasis compared to 09/22/2016. However, the lungs appear more appreciably improved when compared to the more remote chest radiograph from 09/15/2016. 2. Supporting lines and tubes appear stable. 3. Emphysematous changes. Dictated by... Aida Scott M.D. [facility] A Service of [facility] & [facility] RADIOLOGY TEXT RESULTS PATIENT: FRANK HUTSON LOCATION: [place] [address] : [birth year] UNIT #: [id number] AGE: [address]: Laquita Weston MD SEX: M ORDER DR: THIS IS AN ELECTRONICALLY VERIFIED REPORT Aida Scott M.D. at 09/24/2016 1:51 AM DONNELL/cristian TD: 09/23/2016 11:41 JOB #: [id number] MEDICAL IMAGING REPORT COPY
--- NOTE | ~2016-09-04 | CT2 ---
[facility] A Service of [facility] & [facility] RADIOLOGY TEXT RESULTS PATIENT: FRANK HUTSON LOCATION: [place] [address] : 51 UNIT #: [id number] AGE: [address]: Laquita Weston MD SEX: M ORDER DR: [id number] [facility] [address] [facility]. [place], [place] [address] [id number] I MR#: [id number] Acc #: [id number] NAME: FRANK HUTSON. : 1950 SEX: M STUDY DATE/TIME: 09/04/2016 21:20 UNIT: [facility] ROOM: [id number] STUDY DESCRIPTION: CT Abd and Pelv W Cont Attending Physician: Laquita Weston M.D. Ordering Physician: Jonatan Dumont D.O. Primary Care Physician: Ibis Casiano M.D., Ph.D. MEDICAL IMAGING REPORT This report is preliminary unless electronic signature is present EXAM CT 17:00 09/16/2003 CT abdomen and pelvis 09/04/2016 at 23:48 hours. INDICATIONS Esophageal cancer. Patient is status post first chemotherapy treatment 2 days ago. Patient has hematemesis and fever currently. TECHNIQUE Axial images were obtained through the abdomen and pelvis following IV contrast administration. Multiplanar reformats were obtained. This CT exam was performed with one or more of the following radiation dose reduction techniques: automatic exposure control, adjustment of mA and/or kV according to patient size, and iterative reconstruction. COMPARISON Comparison is made with 07/21/2016. FINDINGS Abdomen: For description of findings in the lung bases, please see the chest CT report dictated separately. Gallbladder is grossly normal. There is no biliary obstruction. The liver has a cirrhotic morphology. Hypervascular lesion in segment 6 of the liver measures about 1.8 x 1.6 cm. This is probably not significantly changed allowing for differences in bolus timing and measurement angle. This lesion remains nonspecific. Could reflect a vascular malformation. This could be potentially an HCC as well. It is felt to be less likely but attention on followup is recommended. Spleen again contains numerous granulomatous calcifications. There is a right renal cyst. Renal calcifications on the right are stable. Solid organs are otherwise unremarkable. There has been interval enlargement of a lymph node adjacent to the suprahepatic IVC. It now measures 13 mm where is previously 10 mm. An enlarged lymph node adjacent to the distal esophagus now measures 1.8 x 1.3 cm where it was previously STS. [facility] A Service of [facility] & [facility] RADIOLOGY TEXT RESULTS PATIENT: FRANK HUTSON LOCATION: [place] [address] : 51 UNIT #: [id number] AGE: [address]: Laquita Weston MD SEX: M ORDER DR: about 1.5 x 1.1 cm. There are multiple enlarged lymph nodes in the gastrohepatic ligament. The dominant node is stable about 1.9 x 1.3 cm. There is an enlarged left claudia aortic lymph node which now measures 1.8 x 1.3 cm. It was previously about 1.4 x 1.1 cm. There has been interval enlargement of a lower aortocaval node as well. Findings are in keeping with worsening metastatic disease. There has been interval placement of an esophageal wall stent extending into the stomach. The small bowel is grossly normal. There is wall thickening now noted in the ascending colon through at least the splenic flexure compatible with colitis. There is a small volume of ascites. Pelvis: Urinary bladder is normal. There is some thickening in the sigmoid colon as well as in some distal ileal loops ,suggesting colitis and enteritis. There is a small volume of free fluid. The bones do not appear significantly changed. IMPRESSION 1. Interval development of thickening of the colon from at least the ascending colon through the splenic flexure, compatible with colitis, and there is also probably some thickening in the rectosigmoid colon. 2. There is apparent thickening in the ileum as well, suggesting a component of enteritis. 3. Worsening metastatic adenopathy. Please see reference measurements above. 4. Interval placement of a lower esophageal wall stent extending into the stomach. No bowel obstruction is seen. 5. Stable nonspecific hypervascular lesion in segment 6 of the liver. The liver has a cirrhotic morphology. 6. Small volume of ascites in the abdomen and pelvis. Dictated by... Josh Sharp Jr., M.Anette. THIS IS AN ELECTRONICALLY VERIFIED REPORT Josh Sharp Jr., M.D. at 09/08/2016 7:19 AM LENCHO/bella TD: 09/05/2016 07:59 JOB #: [id number] MEDICAL IMAGING REPORT COPY
--- NOTE | ~2016-09-04 | CT55 ---
[facility] A Service of [facility] & [facility] RADIOLOGY TEXT RESULTS PATIENT: FRANK HUTSON LOCATION: [place] [address] : [birth year] UNIT #: [id number] AGE: [address]: Laquita Weston MD SEX: M ORDER DR: [id number] [facility] [address] [facility]. [place], [place] [address] [id number] I MR#: [id number] Acc #: [id number] NAME: FRANK HUTSON. : 1950 SEX: M STUDY DATE/TIME: 09/04/2016 23:48 UNIT: [facility] ROOM: [id number] STUDY DESCRIPTION: CT Chest W Con Attending Physician: Laquita Weston M.D. Ordering Physician: Jonatan Dumont D.O. Primary Care Physician: Ibis Casiano M.D., Ph.D. MEDICAL IMAGING REPORT This report is preliminary unless electronic signature is present EXAM CT chest 09/04 2348 hours INDICATIONS History of esophageal cancer status post first chemotherapy treatment 2 days ago. Hematemesis started this morning. Cough, congestion. TECHNIQUE Axial images were obtained through the chest following IV contrast administration. Multiplanar reformats were obtained. This CT exam was performed with one or more of the following radiation dose reduction techniques: automatic exposure control, adjustment of mA and/or kV according to patient size, and iterative reconstruction. COMPARISON 07/21/2016. FINDINGS Heart size is normal. No pleural or pericardial effusion is seen. There is a right side Port-A-Cath. There is a new esophageal wall stent which extends into the stomach. There is reflux of gastric contents into the esophagus to the level of the thoracic inlet. There has been interval enlargement of a superior mediastinal node between the innominate artery and left common carotid artery. It now measures about 1.4 x 1.3 cm where it was previously about 9 mm short axis. Right paratracheal node now measures 9 mm short-axis where it was previously 7 mm. Lung windows demonstrate emphysema. Soft tissue nodule in the medial right lower lobe abutting the mediastinum today measures about 1.7 x 1.3 cm. It was previously about 1.4 x 1 cm. No new pulmonary nodules are identified. There is a calcified granuloma in the right lower lobe. There is evidence of metastatic disease in the left T9 transverse process. There is soft tissue encroachment into the spinal canal. This is grossly stable. [facility]. [facility] A Service of [facility] RADIOLOGY TEXT RESULTS PATIENT: FRANK HUTSON LOCATION: [place] [address] : [birth year] UNIT #: [id number] AGE: [address]: Laquita Weston MD SEX: M ORDER DR: IMPRESSION 1. Slight worsening in metastatic adenopathy in the mediastinum. Slight increase size in a right lower lobe nodule which is also probably metastatic disease. 2. There is emphysema, but there are no acute pulmonary infiltrates. 3. Interval placement of an esophageal wall stent extending into the stomach. There is reflux of gastric contents into the esophagus to the level of the thoracic inlet. 4. Again seen is metastatic disease at T9 involving the left transverse process and extending into the central canal. This is grossly stable. 5. For description of findings in the upper abdomen, please see the abdomen and pelvis CT which will be dictated separately. Dictated by... Josh Sharp Jr., M.D. THIS IS AN ELECTRONICALLY VERIFIED REPORT Josh Sharp Jr., M.D. at 09/08/2016 7:19 AM LENCHO/linda TD: 09/05/2016 07:03 JOB #: [id number] MEDICAL IMAGING REPORT COPY
--- NOTE | ~2016-09-04 | US6 ---
[facility] A Service of [facility] RADIOLOGY TEXT RESULTS PATIENT: FRANK HUTSON LOCATION: [address] : [birth year] UNIT #: [id number] AGE: [address]: Laquita Weston MD SEX: M ORDER DR: [id number] [facility] [address] [facility]. [place], [place] [address] [id number] I MR#: [id number] Acc #: [id number] NAME: FRANK HUTSON. : 1950 SEX: M STUDY DATE/TIME: 09/12/2016 20:14 UNIT: [facility] ROOM: [facility] STUDY DESCRIPTION: US Abdominal Limited Attending Physician: Laquita Weston M.D. Ordering Physician: Kolton Shaffer M.D. Primary Care Physician: Ibis Casiano M.D., Ph.D. MEDICAL IMAGING REPORT This report is preliminary unless electronic signature is present EXAM Right upper quadrant ultrasound. DATE OF EXAM 09/12/2016 INDICATION Bloody emesis and dark stools for the last 5 days. History of esophageal cancer, hepatitis C and sclerosis. The patient cannot roll on his side for the study. FINDINGS The pancreatic head appears normal, but the rest of the pancreas is obscured. The liver is small and slightly echogenic. No focal lesions are identified. Sludge is present in the gallbladder. Ascites is present around the liver. The right kidney is 11.3 cm in length and appears normal except for a simple cyst measuring 2 cm in diameter. Gallbladder wall is slightly thickened at 5 mm. The common bile duct is 3.5 mm in diameter. IMPRESSION 1. There is sludge in the gallbladder and the wall is slightly thickened. There is ascites present. 2. The liver is somewhat small and no focal lesions are identified. The appearance suggests cirrhosis. 3. Moderate amount of ascites. Dictated by... Reece Crawford M.D. THIS IS AN ELECTRONICALLY VERIFIED REPORT [facility] A Service of [facility] RADIOLOGY TEXT RESULTS PATIENT: FRANK HUTSON LOCATION: [address] : [birth year] UNIT #: [id number] AGE: [address]: Laquita Weston MD SEX: M ORDER DR: Reece Carwford M.D. at 09/13/2016 4:33 PM LIZBETH/marek TD: 09/13/2016 15:31 JOB #: [id number] MEDICAL IMAGING REPORT COPY
--- NOTE | ~2016-09-04 | EKG ---
PATIENT: FRANK HUTSON UNIT #: [id number] Ventricular Rate: 112 BPM Atrial Rate: 112 BPM P-R Interval: 142 ms QRS Duration: 78 ms Q-T Interval: 376 ms QTC Calculation(Bezet): 513 ms P [place]: 62 degrees Calculated R [place]: 54 degrees Calculated T [place]: 67 degrees Diagnosis Line: Sinus tachycardia Diagnosis Line: Cannot rule out Inferior infarct , age Diagnosis Line: undetermined Diagnosis Line: Cannot rule out Anterolateral infarct , age Diagnosis Line: undetermined Diagnosis Line: Abnormal ECG Diagnosis Line: When compared with ECG of 30-JUL-2016 11:41, Diagnosis Line: Anterolateral infarct is now Present Diagnosis Line: T wave amplitude has decreased in Anterolateral Diagnosis Line: leads Diagnosis Line: Confirmed by AUSTIN GARCIA MD ([id number]) on 09/05/2016 Diagnosis Line: 5:20:59 PM INTERPRETING MD: JOSE VERA
--- NOTE | ~2016-09-04 | DS ---
Unit #: [id number] #: [id number] Patient: FRANK PLATT [id number] [address] [address] [id number] I MR#: [id number] NAME: FRANK PLATT. ROOM: 201 Age: 66 Sex: M Admission Date: 09/05/2016 : 1950 Discharge Date: 09/24/2016 Attending Physician: Laquita Weston M.D. Primary Care Physician: Ibis Casiano M.D., Ph.D. DISCHARGE SUMMARY FINAL DIAGNOSES 1. Acute hypoxic respiratory failure. 2. Non-ST elevation myocardial infarction. 3. Acute kidney injury. 4. Anemia. 5. Intractable nausea, vomiting, metastatic esophageal cancer. 6. History of hepatitis C. 7. Cirrhosis. 8. Colitis. 9. Tobacco abuse. 10. History of peptic ulcer disease. 11. Urethral stricture with obstruction, status post cystoscopy and dilatation of urethral stricture and placement of 16-Irish Dukes catheter by urologist on 09/11/2016. MEDICATIONS Please refer to the med rec. HOSPITAL COURSE Mr. Frank Platt is a 66-year-old male, who has significant medical history of esophageal cancer, who was admitted to hospital for intractable nausea and vomiting. The patient was on the 4th floor getting symptomatic treatment. Beginning of September, he went into respiratory distress, was transferred to ICU 12 of pneumonia, acute non-ST elevation [place], fluid overload, and acute kidney injury. Multiple consults were obtained including Pulmonary, Cardiology, and Renal. The patient decided for DNR status and the patient and family decided for hospice comfort care. Discussed with family and the patient throughout the hospital stay, which was very lengthy stay. DISCHARGE INSTRUCTIONS The patient was discharged to hospice care in inpatient unit on 09/24/2016. Dictated by... Laquita Weston M.D. PIYUSH/oriana TD: 10/08/2016 04:07 JOB #: [id number] Unit #: [id number] #: [id number] Patient: FRANK PLATT DISCHARGE SUMMARY Page 1 of 1 X Laquita Weston MD DISCHARGE SUMMARY
--- NOTE | ~2016-09-04 | EKG ---
PATIENT: FRANK HUTSON UNIT #: [id number] Ventricular Rate: 137 BPM Atrial Rate: 133 BPM QRS Duration: 78 ms Q-T Interval: 376 ms QTC Calculation(Bezet): 567 ms Calculated R [place]: 50 degrees Calculated T [place]: 10 degrees Diagnosis Line: Sinus tachycardia Diagnosis Line: Low voltage QRS Diagnosis Line: Possible Inferior infarct , age undetermined Diagnosis Line: Abnormal ECG Diagnosis Line: Confirmed by RAVINDRA PAREDES MD ([id number]) on Diagnosis Line: 09/16/2016 3:59:11 PM INTERPRETING MD: LENA VERA
--- NOTE | ~2016-09-04 | CO ---
Unit #: [id number] #: [id number] Patient: FRANK HUTSON [id number] [address] [address] [id number] MR#: [id number] NAME: FRANK HUTSON ROOM: [facility] Age: 66 Sex: M Admission Date: 09/05/2016 : 1950 Attending Physician: Laquita Weston M.D. Primary Care Physician: Ibis Casiano M.D., Ph.D. Consultation Date: 09/13/2016 CONSULTATION REPORT REASON FOR CONSULT ICU management. HISTORY OF PRESENT ILLNESS This is a very unfortunate 66-year-old male with past medical history significant for advanced esophageal adenocarcinoma who presented to the emergency room on 09/05/2016 with nausea, vomiting, and dark black tarry vomitus secondary to upper GI bleed. The patient was found to have esophageal cancer which was treated with chemotherapy and radiation but, unfortunately, the cancer has already metastasized. The patient was admitted initially to the regular floor and then, on the night of transfer to the ICU he went in sudden onset of respiratory distress needing increased amount of oxygen support. He denied any chest pain but he is feeling more congested and he is coughing but nothing is coming up. He denied any fever, chills, or night sweats. The patient was placed on a nonrebreather but his oxygen continued decrease, so I have placed him on BiPAP which appears to match his requirement for the time being. STAT CT angiogram was ordered by the primary doctor, however, I will hold on that until he is more stable. PAST MEDICAL HISTORY 1. Esophageal adenocarcinoma. 2. Hepatitis C. 3. Peptic ulcer disease. 4. Malnutrition. PAST SURGICAL HISTORY 1. Multiple EGD/colonoscopy. 2. IV port placement. HOME MEDICATIONS 1. Diflucan. 2. Reglan. 3. Pepcid. 4. Keflex. ALLERGIES No known drug allergies. SOCIAL HISTORY Unit #: [id number] #: [id number] Patient: FRANK HUTSON The patient is an active smoker and he has smoked since he was age 14. No history of alcohol or drug abuse. FAMILY HISTORY Unremarkable. REVIEW OF SYSTEMS Twelve point review of systems were obtained and were negative except for what was mentioned in the HPI. PHYSICAL EXAMINATION VITAL SIGNS: Blood pressure 110/62, respiratory rate 17, O2 saturation 96% on BiPAP. GENERAL: The patient is very ill appearing and malnourished. HEENT: Atraumatic, normocephalic. PERRLA. EOMI. NECK: Supple. No JVD. No lymphadenopathy. LUNGS: Bilateral coarse rhonchi. HEART: S1, S2. No murmur, gallop or rubs. ABDOMEN: Soft, nontender. Bowel sounds are positive. No hepatosplenomegaly. EXTREMITIES: +1 edema in the lower extremity. NEUROLOGIC: Awake, alert, oriented x3. No focal motor/sensory deficit. SKIN: No rashes. DIAGNOSTIC STUDIES LABORATORY: pH 7.43/CO2 of 31/pO2 of 124. Creatinine 1.1, sodium 133, potassium 3.4. White blood cell count 9.4. IMAGING: Chest x-ray consistent with bilateral infiltrate. ASSESSMENT 1. Acute hypoxic respiratory failure. 2. H-cap. [place]/MRSA. 3. Shock, likely septic shock. 4. Esophageal adenocarcinoma. 5. Malnutrition. 6. Chronic anemia. 7. Smoking. PLAN 1. Patient is very ill appearing and critical. We will continue BiPAP. We discuss code status with him, he is currently FULL CODE. 2. IV hydration and broad-spectrum antibiotics. 3. Blood culture and procalcitonin. 4. Keep patient n.p.o. while on BiPAP and reassess later. 5. Bronchodilator and IV steroids. 6. DVT and GI prophylaxis. Please note that patient's platelet is only 31, so will avoid chemical prophylaxis. Critical care time spent on this patient was 38 minutes. Dictated by... Unit #: [id number] #: [id number] Patient: FRAKN HUTSON M.D. EA/bobby TD: 09/16/2016 20:24 JOB #: [id number] CONSULTATION REPORT X ALLEN CLINE MD CONSULTATION REPORT
--- NOTE | ~2016-09-04 | CR7 ---
[facility] A Service of [facility] & [facility] RADIOLOGY TEXT RESULTS PATIENT: FRANK HUSTON LOCATION: [address] : [birth year] UNIT #: [id number] AGE: [address]: Laquita Weston MD SEX: M ORDER DR: [id number] [facility] [address] [facility]. [place], [place] [address] [id number] I MR#: [id number] Acc #: [id number] NAME: FRANK HUTSON. : 1950 SEX: M STUDY DATE/TIME: 09/14/2016 16:47 UNIT: [facility] ROOM: [facility] STUDY DESCRIPTION: CR Abdomen Single AP View Attending Physician: Laquita Weston M.D. Ordering Physician: Laquita Weston M.D. Primary Care Physician: Ibis Casiano M.D., Ph.D. MEDICAL IMAGING REPORT This report is preliminary unless electronic signature is present EXAM Portable abdomen HISTORY Dobbhoff tube placement today. Esophageal cancer. FINDINGS Portable radiograph of the abdomen for Dobbhoff tube placement demonstrates the feeding tube tip is in the upper abdomen to the left of midline at the level of the mid gastric body 15 cm beyond the EG junction. Wallstent extends from the level of the distal esophagus to the proximal stomach. The visualized bowel gas pattern is normal. Dictated by... Casey Grey M.D. THIS IS AN ELECTRONICALLY VERIFIED REPORT Casey Grey M.D. at 09/15/2016 2:17 PM YAMILE/hardy TD: 09/15/2016 07:45 JOB #: [id number] MEDICAL IMAGING REPORT COPY
--- NOTE | ~2016-09-04 | FU ---
[facility] Nutrition Therapy DATE: 09/15/16 Patient: FRANK HUTSON Physician: LEXI Address: [address] [place] [address] Room/Bed: [address], Zip: [place] [address] Admit Date: 09/05/16 Date of : 52 Height: 5 11 Weight: 154 70 NUTRITION MONITORING/FOLLOW-UP: Reason: PT SEEN FOR FOLLOW-UP/ENTERAL NUTRITION SUPPORT DX: COLITIS, ?UPPER GI BLEED, VOMITING DARK BROWN, COLITIS Anthropometrics: 5'11", WT: 154# (70 KG), BMI: 21.5 -ADMIT WEIGHT: 120# (55 KG). FLUID RETENTION NOTED Labs: GLU: 121, BUN: 35, K+:3.4, NA+: 134, CA+:7.3, ALB: 1.5, AST: 96, ALT: 56 Meds: REGLAN, D5%, PROTONIX, KCL, NACL, PHENERGAN, ZOFRAN, MAG-SULFATE I&O's: 2029/3854 Skin: NO KNOWN ISSUES EDEMA: PEDAL/ANKLE 1+ EDEMA; UPPER LEG, TRUNK & (R) FOREARM GENERALIZED EDEMA Estimated Nutrition Needs: [id number] KCAL 81-108 G PRO Assessment: CHART REVIEWED AND EVENTS NOTED. PT SEEN FOR FOLLOW-UP. PT REPORTS POOR PO INTAKE 2' DECREASED APPETITE. PER RN AND CHART, POOR PROGNOSIS NOTED. OF NOTE, PT HAS DHT-PT WAS RECEIVING ENTERAL NUTRITION SUPPORT OF JEVITY 1.5 @ 30 ML/HR-HIGH RESIDUALS ~400 ML NOTED (CURRENTLY OFF AT TIME OF VISIT). PLANS IN PLACE FOR CONTINUOUS ENTERAL NUTRITION SUPPORT PER RD RECOMMENDATIONS. THIS RD ENCOURAGED ADEQUATE KCAL AND PROTEIN INTAKE, PT AGREED BUT REFUSED SUPPLEMENTS AT THIS TIME. NO FAMILY IN ROOM AT TIME OF VISIT. RD TO CONTINUE TO FOLLOW. SEE RECOMMENDATIONS BELOW. Dx: INADEQUATE ORAL INTAKE R/T CURRENT CONDITION, DX AEB PT RECEIVING ALTERNATIVE NUTRITION SUPPORT, ALTERED LAB VALUES. Intervention: 1. FULL LIQUID DIET 2. ENTERAL NUTRITION SUPPORT CURRENTLY OFF Monitoring, Evaluation and Goals: GOALS NOT MET 1. ENTERAL NUTRITION; TOLERATE EN AT GOAL W/NO SIGNS OF INTOLERANCE 2. PO INTAKE; TOLERATE DIET W/NO C/O N/V/D (PO>50%) 3. WEIGHTS; PROMOTE GRADUAL WEIGHT GAIN 4. LABS; WNL (ELECTROLYTES) MONITOR: -PO INTAKE/APPETITE [facility] Nutrition Therapy DATE: 09/15/16 Patient: FRANK Tavo HUTSON Physician: LEXI Address: [address] [place] [address] Room/Bed: [address], Zip: [place] [address] Admit Date: 09/05/16 Date of : 52 Height: 5 11 Weight: 154 70 -WEIGHTS -TF RATE/RESIDUALS -LABS (ELECTROLYTES) Recommendations: 1. CONTINUE TO ENCOURAGE ADEQUATE KCAL, PROTEIN AND FLUID INTAKE -ADVANCE DIET TOLERATED TO HIGH KCAL/HIGH PROTEIN DIET 2' POOR PO INTAKE, SEVERE WEIGHT LOSS NOTED IN RD ASSESSMENT, CURRENT CONDITION CANCER DX 2. ONCE MEDICALLY FEASIBLE, BEGIN ALTERNTATIVE NUTRITION SUPPORT OF VITAL 1.5 @ 10 ML/HR, ADVANCE 10 ML q 12 HOURS TO GOAL RATE OF 55 ML/HR -1980 KCAL, 89 G PRO, 1003 ML FREE H20 ADD FREE H20 FLUSHES 160 ML q 4 HOURS TO MEET PT'S CURRENT ESTIMATED FLUID NEEDS OR MANAGE PER MD CONTINUE TO MONITOR PT'S ELECTROLYTES TO PREVENT RE-FEEDING SYNDROME RD WILL F/U PER PROTOCOL PT IS SEVERELY COMPROMISED Respectfully, RYAN PANCHAL MS, RD, LD [employer] [facility] cc: client file
--- NOTE | ~2016-09-04 | CR71 ---
[facility] A Service of [facility] & [facility] RADIOLOGY TEXT RESULTS PATIENT: FRANK HUTSON LOCATION: [address] : [birth year] UNIT #: [id number] AGE: [address]: Laquita Weston MD SEX: M ORDER DR: [id number] [facility] [address] [facility] [place], [place] [address] [id number] MR#: [id number] Acc #: [id number] NAME: FRANK HUTSON : 1950 SEX: M STUDY DATE/TIME: 09/15/2016 10:15 UNIT: [facility] ROOM: [facility] STUDY DESCRIPTION: CR Chest Single View Attending Physician: Laquita Weston M.D. Ordering Physician: Laquita Weston M.D. Primary Care Physician: Ibis Casiano M.D., Ph.D. MEDICAL IMAGING REPORT This report is preliminary unless electronic signature is present EXAM Frontal chest 09/15/2016 INDICATIONS 66-year-old male with emphysema. Shortness of air symptoms began today, cough. Frontal chest compared with 09/14/2016 FINDINGS Portions of both lung apices are obscured by collimation of the image. Right-sided Medi-Port catheter unchanged. Enteric tube tip at the level of the distal stomach in this patient with a metallic esophageal stent present. There is a left-sided PICC line that is at the level of the distal SVC. Cardiac silhouette stable. Interval improvement of probable atelectasis in the right lung base. Coarsened interstitial markings bilaterally persists. No pneumothorax, effusion or new dense consolidation. IMPRESSION 1. Tubes and lines appear to be in satisfactory position. New enteric tube tip at the level of distal body stomach. No pneumothorax. 2. Low lung volumes with coarsened interstitial opacities bilaterally. These are nonspecific. In the acute setting they may represent sequela of mild vascular congestion or pneumonia. In the chronic setting these may reflect areas of scarring and fibrosis. 3. Improved appearance of the right lung base likely reflecting improving atelectasis. Dictated by... Miller Orlando M.D. THIS IS AN ELECTRONICALLY VERIFIED REPORT [facility] A Service of [facility] & [facility] RADIOLOGY TEXT RESULTS PATIENT: FRANK HUTSON LOCATION: [address] : [birth year] UNIT #: [id number] AGE: [address]: Laquita Weston MD SEX: M ORDER DR: Miller Orlando M.D. at 09/15/2016 5:45 PM Chang TD: 09/15/2016 16:08 JOB #: [id number] MEDICAL IMAGING REPORT COPY
--- NOTE | ~2016-09-04 | US84 ---
[id number] [facility] [address] [place], [place] [address] [id number] MR#: [id number] Acc #: [id number] NAME: FRANK HUTSON : 1950 SEX: M STUDY DATE/TIME: 09/16/2016 8:01 UNIT: [facility] ROOM: [facility] STUDY DESCRIPTION: US LE Veins Complete Abdiel Stdy Attending Physician: Laquita Weston M.D. Ordering Physician: Kolton Shaffer M.D. Primary Care Physician: Ibis Casiano M.D., Ph.D. MEDICAL IMAGING REPORT This report is preliminary unless electronic signature is present EXAM Bilateral lower extremity venous duplex 09/16/2016 HISTORY Bilateral lower extremity edema for 2 days. Evaluate for deep vein thrombosis. TECHNIQUE Venous ultrasound examination of both lower extremities was performed using grayscale, spectral Doppler and color flow Doppler imaging. FINDINGS The examination is negative. There is no evidence of deep venous thrombus from the groin to the lower calf bilaterally. Visualized greater saphenous veins are also patent. IMPRESSION Negative examination. No evidence of lower extremity deep venous thrombosis. Dictated by... Jesús Sequeira M.D. THIS IS AN ELECTRONICALLY VERIFIED REPORT Jesús Sequeira M.D. at 09/17/2016 2:22 PM TONYA/cristian TD: 09/16/2016 13:17 JOB #: [id number] MEDICAL IMAGING REPORT COPY
--- NOTE | ~2016-09-04 | EKG ---
PATIENT: FRANK HUTSON UNIT #: [id number] Ventricular Rate: 100 BPM Atrial Rate: 100 BPM P-R Interval: 132 ms QRS Duration: 84 ms Q-T Interval: 394 ms QTC Calculation(Bezet): 508 ms P Chassell: 1 degrees Calculated R Chassell: 43 degrees Calculated T Chassell: -4 degrees Diagnosis Line: Sinus rhythm with Premature atrial complexes Diagnosis Line: Low voltage QRS Diagnosis Line: Cannot rule out Inferior infarct (cited on or Diagnosis Line: before 04-SEP-2016) Diagnosis Line: Prolonged QT Diagnosis Line: Abnormal ECG Diagnosis Line: When compared with ECG of 13-SEP-2016 04:26, Diagnosis Line: (unconfirmed) Diagnosis Line: Premature atrial complexes are now Present Diagnosis Line: Confirmed by RAVINDRA PAREDES MD ([id number]) on Diagnosis Line: 09/16/2016 4:01:23 PM INTERPRETING MD: LENA VERA
--- NOTE | ~2016-09-04 | MAL ---
[facility] Nutrition Therapy DATE: 09/05/16 Patient: FRANK HUTSON Physician: LEXI Address: [address] [place] [address] Room/Bed: [address] [place] [address], Zip: [place] [address] Admit Date: 09/05/16 Date of : 52 Height: 5 11 Weight: 119 54.43 PHYSICAL MALNUTRITION ASSESSMENT Energy Intake, Chronic Illness Moderately reduced: <75% needs for >/=1 month Energy Intake Comment: Pt reports consuming solid food [employer], fair intake. Weight Loss, Chronic Illness Severe: >7.5% past 3 months Weight Loss, Comment: 30# weight loss in 2-3 months (20% body weight loss) Physical Findings Body Fat and Muscle Mass Moderate: (suggested) some loss of subqutaneous fat and/or muscle mass Physical Findings Comment: Loose skin, depression of temporal region Dietitian Malnutrition Assessment Score: Severe malnutrition identified Malnutrition Survey Results: Malnutrition identified Malnutrition Etiology Summary: Chronic illness severe Malnutrition Survey Comment: See RD nutrition assessment. Respectfully, GRUPO SANON RD, LD Food and Nutritional Services [facility] cc: client file
[~2016-09-04 21:21] MED LIST: COL RITE PO; DICLOFENAC SOD100 GM TOP; DOCUSATE SODIU100 MG PO; HYDROCODON-ACE1 EAC7 PO; HYDROXYZINE HCL50 MG PO; LORAZEPAM1 MG PO; LORTAB 10-3251 EACH PO; MIRALAX17 G2 PO; PROTONIX PO; ROXANOL20 MG/ML PO; SENNA S TABLET1 TAB PO
[2016-09-04 22:14] LABS: BASOPHIL# 0.1 X10e3 (0-0.3); BASOPHIL% 0.6 % (0-2.5); LYMPHOCYTE# 1.1 X10e3 (1.0-3.5); LYMPHOCYTE% 10.9 % (17.0-45.0); MEAN CELL VOLUME 95.2 FL (83-96); MEAN CORPUSCULAR HEMOGLOBIN 31.7 PG (28-34); MEAN CORPUSCULAR HGB CONC 33.3 g/dL (30-36); MEAN PLATELET VOLUME 9.4 FL (6.5-11.5); MONOCYTE# 0.2 X10e3 (0-1.0); MONOCYTE% 1.8 % (3.0-12.0); NEUTROPHIL# 8.9 X10e3 (1.5-7.1); NEUTROPHIL% 86.7 % (40-75); PLATELET COUNT 117 X10e3 (140-420); RED BLOOD COUNT 4.41 X10e (3.90-5.60); RED CELL DISTRIBUTION WIDTH 14.4 % (11.0-15.5); WHITE BLOOD COUNT 10.3 X10e3 (4.0-10.5)
[2016-09-04 22:25] LABS: DIFF IND NO
[2016-09-04 22:31] LABS: INR 1.2; PARTIAL THROMBOPLASTIN TIME 25.4 SECONDS (23.5-31.3); PROTHROMBIN TIME (PATIENT) 12.3 SECONDS (9.6-11.5)
[2016-09-04 22:37] LABS: ALKALINE PHOSPHATASE 82 U/L (32-92); ALT (SGPT) 109 U/L (10-40); AST (SGOT) 183 U/L (10-42); BILIRUBIN, DIRECT 0.5 mg/dL (0.0-0.2); BILIRUBIN,TOTAL 1.5 mg/dL (0.2-2.0); BLOOD UREA NITROGEN 21 mg/dL (9-23); BUN/CREATININE RATIO 26.25; CALCIUM SERUM 8.8 mg/dL (8.4-10.2); CARBON DIOXIDE 24 mmol/L (22-31); CHLORIDE 97 mmol/L (100-111); CREATININE SERUM 0.8 mg/dL (0.6-1.4); GLOM FILT RATE Estimated ABOVE60 mL/min (>60); GLUCOSE FASTING 113 mg/dL (70-110); LIPASE 37 U/L (22-51); POTASSIUM 4.1 mmol/L (3.5-5.1); PROTEIN TOTAL SERUM 6.6 g/dL (6.0-8.3); SODIUM 134 mmol/L (135-145)
[2016-09-04 23:37] LABS: POC - CKMB 1.3 ng/mL (0.0-7.9); POC - TROPONIN <0.05 ng/mL (<=0.05)
[2016-09-05] MEDS ORDERED: KEFLEX500 MG PO (07:44)
[2016-09-05] MEDS ORDERED: DIFLUCAN200 MG PO (07:48)
[2016-09-05] MEDS ORDERED: REGLAN5 MG PO (07:48)
[2016-09-05] MEDS ORDERED: FAMOTIDINE20 M1 PO (07:49)
[2016-09-06 05:06] LABS: ALBUMIN SERUM 2.2 g/dL (3.5-5.0); ALKALINE PHOSPHATASE 53 U/L (32-92); ALT (SGPT) 82 U/L (10-40); AST (SGOT) 129 U/L (10-42); BILIRUBIN,TOTAL 1.5 mg/dL (0.2-2.0); BLOOD UREA NITROGEN 13 mg/dL (9-23); CALCIUM SERUM 7.6 mg/dL (8.4-10.2); CARBON DIOXIDE 24 mmol/L (22-31); CHLORIDE 106 mmol/L (100-111); CREATININE SERUM 0.5 mg/dL (0.6-1.4); GLOM FILT RATE Estimated ABOVE60 mL/min (>60); GLUCOSE FASTING 91 mg/dL (70-110); POTASSIUM 3.6 mmol/L (3.5-5.1); PROTEIN TOTAL SERUM 5.1 g/dL (6.0-8.3); SODIUM 133 mmol/L (135-145)
[2016-09-06 05:19] LABS: BASOPHIL% 0.2 % (0-2.5); EOSINOPHIL# 0.1 X10e3 (0-0.7); EOSINOPHIL% 4.2 % (0.0-7.0); HEMATOCRIT 33.1 % (38.0-50.0); LYMPHOCYTE# 0.5 X10e3 (1.0-3.5); LYMPHOCYTE% 15.7 % (17.0-45.0); MEAN CELL VOLUME 96.2 FL (83-96); MEAN CORPUSCULAR HEMOGLOBIN 31.8 PG (28-34); MEAN PLATELET VOLUME 8.9 FL (6.5-11.5); MONOCYTE% 1.1 % (3.0-12.0); NEUTROPHIL# 2.4 X10e3 (1.5-7.1); NEUTROPHIL% 78.8 % (40-75); RED BLOOD COUNT 3.45 X10e (3.90-5.60)
[2016-09-06 05:50] LABS: DIFF IND NO; PLATELET COUNT 44 X10e3 (140-420)
[2016-09-07 02:42] LABS: BASOPHIL% 0.5 % (0-2.5); EOSINOPHIL# 0.1 X10e3 (0-0.7); EOSINOPHIL% 4.7 % (0.0-7.0); HEMATOCRIT 30.4 % (38.0-50.0); HEMOGLOBIN 10.2 gm/dL (13.0-16.0); LYMPHOCYTE# 0.4 X10e3 (1.0-3.5); LYMPHOCYTE% 19.1 % (17.0-45.0); MEAN CELL VOLUME 95.2 FL (83-96); MEAN CORPUSCULAR HEMOGLOBIN 31.9 PG (28-34); MEAN CORPUSCULAR HGB CONC 33.5 g/dL (30-36); MEAN PLATELET VOLUME 9.1 FL (6.5-11.5); MONOCYTE% 1.1 % (3.0-12.0); NEUTROPHIL# 1.4 X10e3 (1.5-7.1); NEUTROPHIL% 74.6 % (40-75); WHITE BLOOD COUNT 1.9 X10e3 (4.0-10.5)
[2016-09-07 02:47] LABS: PLATELET COUNT 39 X10e3 (140-420)
[2016-09-07 02:48] LABS: DIFF IND YES
[2016-09-07 03:05] LABS: ALKALINE PHOSPHATASE 55 U/L (32-92); ALT (SGPT) 82 U/L (10-40); AST (SGOT) 138 U/L (10-42); BILIRUBIN,TOTAL 1.2 mg/dL (0.2-2.0); BLOOD UREA NITROGEN 9 mg/dL (9-23); CALCIUM SERUM 7.2 mg/dL (8.4-10.2); CARBON DIOXIDE 25 mmol/L (22-31); CHLORIDE 106 mmol/L (100-111); CREATININE SERUM 0.5 mg/dL (0.6-1.4); GLOM FILT RATE Estimated ABOVE60 mL/min (>60); GLUCOSE FASTING 93 mg/dL (70-110); POTASSIUM 3.5 mmol/L (3.5-5.1); PROTEIN TOTAL SERUM 4.7 g/dL (6.0-8.3); SODIUM 132 mmol/L (135-145)
[2016-09-07 03:45] LABS: PLATELET ESTIMATE DECREASED (NORMAL)
[2016-09-07 03:46] LABS: ANISOCYTOSIS SL
[2016-09-08 02:42] LABS: BASOPHIL% 1.9 % (0-2.5); EOSINOPHIL% 4.9 % (0.0-7.0); HEMATOCRIT 30.5 % (38.0-50.0); HEMOGLOBIN 10.1 gm/dL (13.0-16.0); LYMPHOCYTE# 0.1 X10e3 (1.0-3.5); LYMPHOCYTE% 23.4 % (17.0-45.0); MEAN CELL VOLUME 95.1 FL (83-96); MEAN CORPUSCULAR HEMOGLOBIN 31.4 PG (28-34); MEAN PLATELET VOLUME 8.9 FL (6.5-11.5); MONOCYTE% 3.9 % (3.0-12.0); NEUTROPHIL# 0.3 X10e3 (1.5-7.1); NEUTROPHIL% 65.9 % (40-75); RED BLOOD COUNT 3.21 X10e (3.90-5.60)
[2016-09-08 02:43] LABS: WHITE BLOOD COUNT 0.4 X10e3 (4.0-10.5)
[2016-09-08 02:44] LABS: PLATELET COUNT 29 X10e3 (140-420)
[2016-09-08 02:45] LABS: DIFF IND NO
[2016-09-08 03:04] LABS: ALKALINE PHOSPHATASE 63 U/L (32-92); ALT (SGPT) 95 U/L (10-40); AST (SGOT) 163 U/L (10-42); BILIRUBIN,TOTAL 1.4 mg/dL (0.2-2.0); BLOOD UREA NITROGEN 11 mg/dL (9-23); BUN/CREATININE RATIO 18.33; CALCIUM SERUM 7.2 mg/dL (8.4-10.2); CARBON DIOXIDE 23 mmol/L (22-31); CHLORIDE 106 mmol/L (100-111); CREATININE SERUM 0.6 mg/dL (0.6-1.4); GLOM FILT RATE Estimated ABOVE60 mL/min (>60); GLUCOSE FASTING 109 mg/dL (70-110); POTASSIUM 3.7 mmol/L (3.5-5.1); PROTEIN TOTAL SERUM 4.6 g/dL (6.0-8.3); SODIUM 134 mmol/L (135-145)
[2016-09-09 03:32] LABS: HEMATOCRIT 34.8 % (38.0-50.0); HEMOGLOBIN 11.3 gm/dL (13.0-16.0); MEAN CELL VOLUME 94.2 FL (83-96); MEAN CORPUSCULAR HEMOGLOBIN 30.7 PG (28-34); MEAN CORPUSCULAR HGB CONC 32.6 g/dL (30-36); MEAN PLATELET VOLUME 8.8 FL (6.5-11.5); RED BLOOD COUNT 3.7 X10e (3.90-5.60); RED CELL DISTRIBUTION WIDTH 14.2 % (11.0-15.5); WHITE BLOOD COUNT 0.7 X10e3 (4.0-10.5)
[2016-09-09 04:02] LABS: ALBUMIN SERUM 2.1 g/dL (3.5-5.0); ALKALINE PHOSPHATASE 64 U/L (32-92); ALT (SGPT) 113 U/L (10-40); AST (SGOT) 176 U/L (10-42); BILIRUBIN,TOTAL 1.1 mg/dL (0.2-2.0); BLOOD UREA NITROGEN 12 mg/dL (9-23); BUN/CREATININE RATIO 17.14; CALCIUM SERUM 7.5 mg/dL (8.4-10.2); CARBON DIOXIDE 23 mmol/L (22-31); CHLORIDE 109 mmol/L (100-111); CREATININE SERUM 0.7 mg/dL (0.6-1.4); GLOM FILT RATE Estimated ABOVE60 mL/min (>60); GLUCOSE FASTING 125 mg/dL (70-110); POTASSIUM 3.5 mmol/L (3.5-5.1); PROTEIN TOTAL SERUM 4.9 g/dL (6.0-8.3); SODIUM 140 mmol/L (135-145)
[2016-09-10 04:32] LABS: BASOPHIL% 0.5 % (0-2.5); EOSINOPHIL% 2.7 % (0.0-7.0); HEMATOCRIT 30.4 % (38.0-50.0); LYMPHOCYTE# 0.2 X10e3 (1.0-3.5); LYMPHOCYTE% 35.4 % (17.0-45.0); MEAN CELL VOLUME 93.6 FL (83-96); MEAN CORPUSCULAR HEMOGLOBIN 30.8 PG (28-34); MEAN CORPUSCULAR HGB CONC 32.9 g/dL (30-36); MEAN PLATELET VOLUME 8.9 FL (6.5-11.5); MONOCYTE# 0.3 X10e3 (0-1.0); NEUTROPHIL% 8.4 % (40-75); RED BLOOD COUNT 3.25 X10e (3.90-5.60); RED CELL DISTRIBUTION WIDTH 14.3 % (11.0-15.5); WHITE BLOOD COUNT 0.5 X10e3 (4.0-10.5)
[2016-09-10 04:42] LABS: DIFF IND YES; PLATELET COUNT 33 X10e3 (140-420)
[2016-09-10 04:50] LABS: ALBUMIN SERUM 1.7 g/dL (3.5-5.0); ALKALINE PHOSPHATASE 49 U/L (32-92); ALT (SGPT) 113 U/L (10-40); AST (SGOT) 184 U/L (10-42); BILIRUBIN,TOTAL 1.1 mg/dL (0.2-2.0); BLOOD UREA NITROGEN 15 mg/dL (9-23); BUN/CREATININE RATIO 21.42; CARBON DIOXIDE 23 mmol/L (22-31); CHLORIDE 112 mmol/L (100-111); CREATININE SERUM 0.7 mg/dL (0.6-1.4); GLOM FILT RATE Estimated ABOVE60 mL/min (>60); GLUCOSE FASTING 116 mg/dL (70-110); POTASSIUM 3.1 mmol/L (3.5-5.1); PROTEIN TOTAL SERUM 4.1 g/dL (6.0-8.3); SODIUM 140 mmol/L (135-145)
[2016-09-10 04:57] LABS: HYPOCHROMIA SL; PLATELET ESTIMATE DECREASED (NORMAL)
[2016-09-11 04:30] LABS: HEMATOCRIT 28.3 % (38.0-50.0); HEMOGLOBIN 9.3 gm/dL (13.0-16.0); MEAN CELL VOLUME 95.8 FL (83-96); MEAN CORPUSCULAR HEMOGLOBIN 31.6 PG (28-34); MEAN CORPUSCULAR HGB CONC 32.9 g/dL (30-36); MEAN PLATELET VOLUME 9.7 FL (6.5-11.5); RED BLOOD COUNT 2.95 X10e (3.90-5.60); RED CELL DISTRIBUTION WIDTH 14.5 % (11.0-15.5)
[2016-09-11 04:31] LABS: WHITE BLOOD COUNT 2.9 X10e3 (4.0-10.5)
[2016-09-11 07:59] LABS: BUN/CREATININE RATIO 19.28; CALCIUM SERUM 7.3 mg/dL (8.4-10.2); CREATININE SERUM 1.4 mg/dL (0.6-1.4); GLOM FILT RATE Estimated 54.1 mL/min (>60); POTASSIUM 3.4 mmol/L (3.5-5.1)
[2016-09-11 19:40] LABS: BUN/CREATININE RATIO 18.75; CALCIUM SERUM 7.1 mg/dL (8.4-10.2); CREATININE SERUM 1.6 mg/dL (0.6-1.4); GLOM FILT RATE Estimated 46.3 mL/min (>60); POTASSIUM 3.1 mmol/L (3.5-5.1)
[2016-09-12 04:08] LABS: HEMOGLOBIN 9.9 gm/dL (13.0-16.0); MEAN CELL VOLUME 94.7 FL (83-96); MEAN CORPUSCULAR HEMOGLOBIN 31.4 PG (28-34); MEAN CORPUSCULAR HGB CONC 33.1 g/dL (30-36); MEAN PLATELET VOLUME 10.1 FL (6.5-11.5); RED BLOOD COUNT 3.16 X10e (3.90-5.60); RED CELL DISTRIBUTION WIDTH 14.5 % (11.0-15.5)
[2016-09-12 04:18] LABS: WHITE BLOOD COUNT 11.5 X10e3 (4.0-10.5)
[2016-09-12 04:40] LABS: BUN/CREATININE RATIO 18.88; CALCIUM SERUM 7.4 mg/dL (8.4-10.2); CREATININE SERUM 1.8 mg/dL (0.6-1.4); GLOM FILT RATE Estimated 40.4 mL/min (>60); POTASSIUM 3.6 mmol/L (3.5-5.1)
[2016-09-12 10:28] LABS: URINE APPEARANCE TURBID; URINE BLOOD 3+ (NEG); URINE COLOR DK YELLOW; URINE GLUCOSE NEG (NEG); URINE KETONE TRACE (NEG); URINE LEUKOCYTE ESTERASE 1+ (NEG); URINE NITRATE POS (NEG); URINE PH 5.5 (5-8); URINE PROTEIN 1+ (NEG); URINE SPECIFIC GRAVITY 1.022 (1.003-1.035); URINE UROBILINOGEN 0.2 MG/DL (NEG)
[2016-09-12 10:30] LABS: CULTURE INDICATED? YES; URBCS1 AUWI INNUM /[HPF] (0-2); URINE BACTERIA AUWI NEG (NEGATIVE); URINE SQUAMOUS EPITHELIAL CELL MOD /[HPF]
[2016-09-12 10:38] LABS: URINE BILIRUBIN POS (NEG)
[2016-09-12 10:41] LABS: URINE MUCUS PRESENT
[2016-09-12 14:32] LABS: ALBUMIN SERUM 1.7 g/dL (3.5-5.0); BILIRUBIN,TOTAL 1.3 mg/dL (0.2-2.0); BUN/CREATININE RATIO 21.17; CALCIUM SERUM 7.4 mg/dL (8.4-10.2); CREATININE SERUM 1.7 mg/dL (0.6-1.4); GLOM FILT RATE Estimated 43.2 mL/min (>60); POTASSIUM 3.3 mmol/L (3.5-5.1); PROTEIN TOTAL SERUM 4.1 g/dL (6.0-8.3)
[2016-09-12 20:30] LABS: URINE APPEARANCE CLOUDY; URINE BLOOD 3+ (NEG); URINE COLOR DK YELLOW; URINE GLUCOSE NEG (NEG); URINE KETONE TRACE (NEG); URINE LEUKOCYTE ESTERASE 1+ (NEG); URINE NITRATE POS (NEG); URINE PH 5.5 (5-8); URINE PROTEIN 1+ (NEG); URINE SPECIFIC GRAVITY 1.022 (1.003-1.035); URINE UROBILINOGEN 0.2 MG/DL (NEG)
[2016-09-12 20:33] LABS: CULTURE INDICATED? YES; URBCS1 AUWI INNUM /[HPF] (0-2); URINE BACTERIA AUWI NEG (NEGATIVE); URINE SQUAMOUS EPITHELIAL CELL OCC /[HPF]
[2016-09-12 20:41] LABS: URINE BILIRUBIN NEG (NEG)
[2016-09-12 20:53] LABS: URINE GRANULAR CAST 0-2 /[HPF]; URINE RED BLOOD CELL CAST 0-2 /[HPF]
[2016-09-13 03:34] LABS: HEMATOCRIT 31.3 % (38.0-50.0); HEMOGLOBIN 10.2 gm/dL (13.0-16.0); MEAN CELL VOLUME 94.5 FL (83-96); MEAN CORPUSCULAR HEMOGLOBIN 30.9 PG (28-34); MEAN CORPUSCULAR HGB CONC 32.7 g/dL (30-36); MEAN PLATELET VOLUME 10.8 FL (6.5-11.5); RED BLOOD COUNT 3.31 X10e (3.90-5.60); RED CELL DISTRIBUTION WIDTH 14.6 % (11.0-15.5); WHITE BLOOD COUNT 11.7 X10e3 (4.0-10.5)
[2016-09-13 03:57] LABS: BUN/CREATININE RATIO 27.14; CALCIUM SERUM 7.4 mg/dL (8.4-10.2); CREATININE SERUM 1.4 mg/dL (0.6-1.4); GLOM FILT RATE Estimated 54.1 mL/min (>60); POTASSIUM 3.3 mmol/L (3.5-5.1)
[2016-09-13 04:22] LABS: ARTERIAL BLD GAS O2 SATURATION 84.4 % (90.0-100.0); ARTERIAL BLOOD GAS CARBOXY HB 0.7 %sat (0.0-9.0); ARTERIAL BLOOD GAS MET HB 0.7 %sat (0.0-2.0); ARTERIAL BLOOD GAS PCO2 43.5 mmHg (35.0-45.0)
[2016-09-13 04:47] LABS: ARTERIAL BLOOD GAS ALLEN TEST NORMAL; ARTERIAL BLOOD GAS ART SITE RIGHT RADIAL; ARTERIAL BLOOD GAS PO2 61.4 mmHg (80.0-100); ARTERIAL BLOOD GAS pH 7.174 (7.350-7.450); ARTERIAL DRAW? YES
[2016-09-13 04:48] LABS: ARTERIAL BLOOD GAS DELIVERY NON REBREATHER MASK
[2016-09-13 05:19] LABS: CK TOTAL 37 IU/L (36-174)
[2016-09-13 11:25] LABS: CK TOTAL 41 IU/L (36-174)
[2016-09-14 03:58] LABS: ARTERIAL BLD GAS O2 SATURATION 97.6 % (90.0-100.0); ARTERIAL BLOOD GAS CARBOXY HB 0.5 %sat (0.0-9.0); ARTERIAL BLOOD GAS HCO3 20.4 mmol/L; ARTERIAL BLOOD GAS MET HB 1.1 %sat (0.0-2.0); ARTERIAL BLOOD GAS PCO2 31.2 mmHg (35.0-45.0); ARTERIAL BLOOD GAS pH 7.423 (7.350-7.450)
[2016-09-14 04:13] LABS: ARTERIAL BLOOD GAS ALLEN TEST NORMAL; ARTERIAL BLOOD GAS ART SITE RIGHT RADIAL; ARTERIAL DRAW? YES
[2016-09-14 04:14] LABS: ARTERIAL BLOOD GAS DELIVERY HEATED HI FLOW
[2016-09-14 04:36] LABS: BASOPHIL% 0.3 % (0-2.5); EOSINOPHIL# 0.1 X10e3 (0-0.7); EOSINOPHIL% 0.6 % (0.0-7.0); HEMATOCRIT 30.7 % (38.0-50.0); HEMOGLOBIN 10.1 gm/dL (13.0-16.0); LYMPHOCYTE# 0.7 X10e3 (1.0-3.5); LYMPHOCYTE% 5.2 % (17.0-45.0); MEAN CELL VOLUME 93.6 FL (83-96); MEAN CORPUSCULAR HEMOGLOBIN 30.8 PG (28-34); MEAN PLATELET VOLUME 10.8 FL (6.5-11.5); MONOCYTE# 0.5 X10e3 (0-1.0); MONOCYTE% 4.2 % (3.0-12.0); NEUTROPHIL# 11.4 X10e3 (1.5-7.1); NEUTROPHIL% 89.7 % (40-75); RED BLOOD COUNT 3.28 X10e (3.90-5.60); RED CELL DISTRIBUTION WIDTH 15.2 % (11.0-15.5); WHITE BLOOD COUNT 12.7 X10e3 (4.0-10.5)
[2016-09-14 04:40] LABS: DIFF IND YES
[2016-09-14 04:41] LABS: PLATELET COUNT 41 X10e3 (140-420)
[2016-09-14 04:59] LABS: MICROCYTOSIS SL; PLATELET ESTIMATE DECREASED (NORMAL)
[2016-09-14 05:00] LABS: BURR CELLS PRESENT; HYPOCHROMIA SL
[2016-09-14 05:59] LABS: ALBUMIN SERUM 1.6 g/dL (3.5-5.0); ALKALINE PHOSPHATASE 124 U/L (32-92); ALT (SGPT) 65 U/L (10-40); AST (SGOT) 104 U/L (10-42); BLOOD UREA NITROGEN 36 mg/dL (9-23); BUN/CREATININE RATIO 32.72; CALCIUM SERUM 7.2 mg/dL (8.4-10.2); CARBON DIOXIDE 21 mmol/L (22-31); CHLORIDE 106 mmol/L (100-111); CREATININE SERUM 1.1 mg/dL (0.6-1.4); GLOM FILT RATE Estimated ABOVE60 mL/min (>60); GLUCOSE FASTING 102 mg/dL (70-110); MAGNESIUM 1.6 mg/dL (1.6-3.0); POTASSIUM 3.9 mmol/L (3.5-5.1); PROTEIN TOTAL SERUM 4.1 g/dL (6.0-8.3); SODIUM 133 mmol/L (135-145)
[2016-09-15 05:21] LABS: BASOPHIL% 0.4 % (0-2.5); EOSINOPHIL# 0.1 X10e3 (0-0.7); EOSINOPHIL% 0.9 % (0.0-7.0); HEMATOCRIT 28.9 % (38.0-50.0); HEMOGLOBIN 9.4 gm/dL (13.0-16.0); LYMPHOCYTE# 0.9 X10e3 (1.0-3.5); LYMPHOCYTE% 7.5 % (17.0-45.0); MEAN CELL VOLUME 92.7 FL (83-96); MEAN CORPUSCULAR HEMOGLOBIN 30.2 PG (28-34); MEAN CORPUSCULAR HGB CONC 32.5 g/dL (30-36); MEAN PLATELET VOLUME 10.3 FL (6.5-11.5); MONOCYTE# 0.4 X10e3 (0-1.0); MONOCYTE% 3.5 % (3.0-12.0); NEUTROPHIL# 10.6 X10e3 (1.5-7.1); NEUTROPHIL% 87.7 % (40-75); RED BLOOD COUNT 3.12 X10e (3.90-5.60); RED CELL DISTRIBUTION WIDTH 15.1 % (11.0-15.5); WHITE BLOOD COUNT 12.1 X10e3 (4.0-10.5)
[2016-09-15 05:31] LABS: ALBUMIN SERUM 1.5 g/dL (3.5-5.0); ALKALINE PHOSPHATASE 108 U/L (32-92); ALT (SGPT) 56 U/L (10-40); AST (SGOT) 96 U/L (10-42); BILIRUBIN,TOTAL 1.9 mg/dL (0.2-2.0); BLOOD UREA NITROGEN 35 mg/dL (9-23); BUN/CREATININE RATIO 29.16; CALCIUM SERUM 7.3 mg/dL (8.4-10.2); CARBON DIOXIDE 23 mmol/L (22-31); CHLORIDE 106 mmol/L (100-111); CREATININE SERUM 1.2 mg/dL (0.6-1.4); GLOM FILT RATE Estimated ABOVE60 mL/min (>60); GLUCOSE FASTING 121 mg/dL (70-110); MAGNESIUM 1.7 mg/dL (1.6-3.0); POTASSIUM 3.4 mmol/L (3.5-5.1); PROTEIN TOTAL SERUM 4.1 g/dL (6.0-8.3); SODIUM 134 mmol/L (135-145)
[2016-09-15 05:34] LABS: DIFF IND NO; PLATELET COUNT 44 X10e3 (140-420)
[2016-09-15 11:18] LABS: CHOLESTEROL 39 mg/dL (0-200); TRIGLYCERIDES 106 mg/dL (10-160)
[2016-09-15 11:19] LABS: HDL CHOLESTEROL <5 mg/dL (29-75); LDL CHOLESTEROL 13 mg/dL (-130); LDL/HDL RATIO 2 RATIO (0-4)
[2016-09-15 19:12] LABS: ARTERIAL BLD GAS O2 SATURATION 93.9 % (90.0-100.0); ARTERIAL BLOOD GAS CARBOXY HB 0.9 %sat (0.0-9.0); ARTERIAL BLOOD GAS HCO3 25.3 mmol/L; ARTERIAL BLOOD GAS MET HB 1.3 %sat (0.0-2.0); ARTERIAL BLOOD GAS PCO2 36.6 mmHg (35.0-45.0); ARTERIAL BLOOD GAS pH 7.448 (7.350-7.450)
[2016-09-15 19:14] LABS: ARTERIAL BLOOD GAS ALLEN TEST NORMAL; ARTERIAL BLOOD GAS ART SITE RIGHT RADIAL; ARTERIAL BLOOD GAS DELIVERY AIRVO; ARTERIAL DRAW? YES
[2016-09-16 04:11] LABS: ARTERIAL BLD GAS O2 SATURATION 96.8 % (90.0-100.0); ARTERIAL BLOOD GAS CARBOXY HB 0.8 %sat (0.0-9.0); ARTERIAL BLOOD GAS HCO3 26.6 mmol/L; ARTERIAL BLOOD GAS MET HB 1.3 %sat (0.0-2.0); ARTERIAL BLOOD GAS PCO2 38.4 mmHg (35.0-45.0); ARTERIAL BLOOD GAS pH 7.449 (7.350-7.450)
[2016-09-16 04:43] LABS: ARTERIAL BLOOD GAS ALLEN TEST NORMAL; ARTERIAL BLOOD GAS ART SITE RIGHT RADIAL; ARTERIAL BLOOD GAS DELIVERY AIRVO; ARTERIAL DRAW? YES
[2016-09-16 06:09] LABS: BASOPHIL# 0.1 X10e3 (0-0.3); BASOPHIL% 0.8 % (0-2.5); EOSINOPHIL# 0.1 X10e3 (0-0.7); EOSINOPHIL% 1.3 % (0.0-7.0); HEMATOCRIT 28.5 % (38.0-50.0); HEMOGLOBIN 9.6 gm/dL (13.0-16.0); LYMPHOCYTE# 0.9 X10e3 (1.0-3.5); LYMPHOCYTE% 9.7 % (17.0-45.0); MEAN CELL VOLUME 92.8 FL (83-96); MEAN CORPUSCULAR HEMOGLOBIN 31.2 PG (28-34); MEAN CORPUSCULAR HGB CONC 33.6 g/dL (30-36); MONOCYTE# 0.4 X10e3 (0-1.0); MONOCYTE% 4.1 % (3.0-12.0); NEUTROPHIL# 7.9 X10e3 (1.5-7.1); NEUTROPHIL% 84.1 % (40-75); RED BLOOD COUNT 3.07 X10e (3.90-5.60); RED CELL DISTRIBUTION WIDTH 15.4 % (11.0-15.5); WHITE BLOOD COUNT 9.4 X10e3 (4.0-10.5)
[2016-09-16 06:13] LABS: DIFF IND NO; PLATELET COUNT 31 X10e3 (140-420)
[2016-09-16 06:45] LABS: BLOOD UREA NITROGEN 34 mg/dL (9-23); BUN/CREATININE RATIO 37.77; CALCIUM SERUM 7.4 mg/dL (8.4-10.2); CARBON DIOXIDE 27 mmol/L (22-31); CHLORIDE 103 mmol/L (100-111); CREATININE SERUM 0.9 mg/dL (0.6-1.4); GLOM FILT RATE Estimated ABOVE60 mL/min (>60); GLUCOSE FASTING 122 mg/dL (70-110); MAGNESIUM 1.6 mg/dL (1.6-3.0); POTASSIUM 3.5 mmol/L (3.5-5.1); SODIUM 134 mmol/L (135-145)
[2016-09-17 06:35] LABS: BASOPHIL# 0.1 X10e3 (0-0.3); EOSINOPHIL# 0.1 X10e3 (0-0.7); EOSINOPHIL% 0.9 % (0.0-7.0); HEMATOCRIT 29.1 % (38.0-50.0); HEMOGLOBIN 9.6 gm/dL (13.0-16.0); LYMPHOCYTE# 0.9 X10e3 (1.0-3.5); MEAN CELL VOLUME 92.3 FL (83-96); MEAN CORPUSCULAR HEMOGLOBIN 30.5 PG (28-34); MEAN CORPUSCULAR HGB CONC 33.1 g/dL (30-36); MEAN PLATELET VOLUME 10.6 FL (6.5-11.5); MONOCYTE# 0.6 X10e3 (0-1.0); MONOCYTE% 6.1 % (3.0-12.0); NEUTROPHIL# 7.8 X10e3 (1.5-7.1); RED BLOOD COUNT 3.15 X10e (3.90-5.60); RED CELL DISTRIBUTION WIDTH 15.5 % (11.0-15.5); WHITE BLOOD COUNT 9.5 X10e3 (4.0-10.5)
[2016-09-17 06:42] LABS: DIFF IND NO; PLATELET COUNT 47 X10e3 (140-420)
[2016-09-17 07:35] LABS: BLOOD UREA NITROGEN 35 mg/dL (9-23); BUN/CREATININE RATIO 43.75; CALCIUM SERUM 7.7 mg/dL (8.4-10.2); CARBON DIOXIDE 27 mmol/L (22-31); CHLORIDE 101 mmol/L (100-111); CREATININE SERUM 0.8 mg/dL (0.6-1.4); GLOM FILT RATE Estimated ABOVE60 mL/min (>60); GLUCOSE FASTING 121 mg/dL (70-110); POTASSIUM 4.3 mmol/L (3.5-5.1); SODIUM 136 mmol/L (135-145)
[2016-09-18 06:04] LABS: BLOOD UREA NITROGEN 36 mg/dL (9-23); CALCIUM SERUM 7.4 mg/dL (8.4-10.2); CARBON DIOXIDE 30 mmol/L (22-31); CHLORIDE 100 mmol/L (100-111); CREATININE SERUM 0.8 mg/dL (0.6-1.4); GLOM FILT RATE Estimated ABOVE60 mL/min (>60); GLUCOSE FASTING 117 mg/dL (70-110); POTASSIUM 4.3 mmol/L (3.5-5.1); SODIUM 134 mmol/L (135-145)
[2016-09-19 03:56] LABS: ARTERIAL BLD GAS O2 SATURATION 92.5 % (90.0-100.0); ARTERIAL BLOOD GAS CARBOXY HB 0.9 %sat (0.0-9.0); ARTERIAL BLOOD GAS MET HB 1.2 %sat (0.0-2.0); ARTERIAL BLOOD GAS PCO2 48.5 mmHg (35.0-45.0)
[2016-09-19 03:59] LABS: BASOPHIL% 0.2 % (0-2.5); HEMATOCRIT 29.3 % (38.0-50.0); HEMOGLOBIN 9.6 gm/dL (13.0-16.0); LYMPHOCYTE# 0.3 X10e3 (1.0-3.5); MEAN CELL VOLUME 93.1 FL (83-96); MEAN CORPUSCULAR HEMOGLOBIN 30.6 PG (28-34); MEAN CORPUSCULAR HGB CONC 32.8 g/dL (30-36); MEAN PLATELET VOLUME 10.4 FL (6.5-11.5); MONOCYTE# 0.2 X10e3 (0-1.0); NEUTROPHIL# 6.1 X10e3 (1.5-7.1); NEUTROPHIL% 91.8 % (40-75); PLATELET COUNT 62 X10e3 (140-420); RED BLOOD COUNT 3.14 X10e (3.90-5.60); WHITE BLOOD COUNT 6.6 X10e3 (4.0-10.5)
[2016-09-19 04:00] LABS: DIFF IND NO
[2016-09-19 04:08] LABS: ALBUMIN SERUM 1.6 g/dL (3.5-5.0); ALKALINE PHOSPHATASE 184 U/L (32-92); ALT (SGPT) 57 U/L (10-40); AST (SGOT) 107 U/L (10-42); BILIRUBIN,TOTAL 0.8 mg/dL (0.2-2.0); BLOOD UREA NITROGEN 43 mg/dL (9-23); BUN/CREATININE RATIO 53.75; CALCIUM SERUM 7.7 mg/dL (8.4-10.2); CARBON DIOXIDE 29 mmol/L (22-31); CHLORIDE 98 mmol/L (100-111); CREATININE SERUM 0.8 mg/dL (0.6-1.4); GLOM FILT RATE Estimated ABOVE60 mL/min (>60); GLUCOSE FASTING 181 mg/dL (70-110); MAGNESIUM 2.1 mg/dL (1.6-3.0); POTASSIUM 5.2 mmol/L (3.5-5.1); PROTEIN TOTAL SERUM 5.1 g/dL (6.0-8.3); SODIUM 130 mmol/L (135-145)
[2016-09-19 04:10] LABS: ARTERIAL BLOOD GAS ALLEN TEST NORMAL; ARTERIAL BLOOD GAS ART SITE RIGHT RADIAL; ARTERIAL BLOOD GAS DELIVERY HEATED HIGH FLOW; ARTERIAL BLOOD GAS PO2 69.7 mmHg (80.0-100); ARTERIAL DRAW? YES
[2016-09-19 13:07] LABS: BLOOD UREA NITROGEN 45 mg/dL (9-23); BUN/CREATININE RATIO 64.28; CALCIUM SERUM 7.8 mg/dL (8.4-10.2); CARBON DIOXIDE 28 mmol/L (22-31); CHLORIDE 99 mmol/L (100-111); CREATININE SERUM 0.7 mg/dL (0.6-1.4); GLOM FILT RATE Estimated ABOVE60 mL/min (>60); GLUCOSE FASTING 193 mg/dL (70-110); POTASSIUM 5.2 mmol/L (3.5-5.1); SODIUM 131 mmol/L (135-145)
[2016-09-20 04:38] LABS: BASOPHIL% 0.2 % (0-2.5); HEMATOCRIT 28.7 % (38.0-50.0); HEMOGLOBIN 9.5 gm/dL (13.0-16.0); LYMPHOCYTE# 0.3 X10e3 (1.0-3.5); LYMPHOCYTE% 3.6 % (17.0-45.0); MEAN CELL VOLUME 92.8 FL (83-96); MEAN CORPUSCULAR HEMOGLOBIN 30.8 PG (28-34); MEAN CORPUSCULAR HGB CONC 33.2 g/dL (30-36); MEAN PLATELET VOLUME 10.2 FL (6.5-11.5); MONOCYTE# 0.7 X10e3 (0-1.0); MONOCYTE% 7.5 % (3.0-12.0); NEUTROPHIL# 8.3 X10e3 (1.5-7.1); NEUTROPHIL% 88.7 % (40-75); PLATELET COUNT 99 X10e3 (140-420); RED BLOOD COUNT 3.09 X10e (3.90-5.60); RED CELL DISTRIBUTION WIDTH 16.3 % (11.0-15.5); WHITE BLOOD COUNT 9.3 X10e3 (4.0-10.5)
[2016-09-20 04:39] LABS: DIFF IND NO
[2016-09-20 04:49] LABS: BLOOD UREA NITROGEN 54 mg/dL (9-23); CARBON DIOXIDE 29 mmol/L (22-31); CHLORIDE 100 mmol/L (100-111); CREATININE SERUM 0.8 mg/dL (0.6-1.4); GLOM FILT RATE Estimated ABOVE60 mL/min (>60); GLUCOSE FASTING 200 mg/dL (70-110); MAGNESIUM 2.2 mg/dL (1.6-3.0); POTASSIUM 5.3 mmol/L (3.5-5.1); SODIUM 133 mmol/L (135-145)
[2016-09-21 04:15] LABS: ARTERIAL BLD GAS O2 SATURATION 94.8 % (90.0-100.0); ARTERIAL BLOOD GAS CARBOXY HB 0.5 %sat (0.0-9.0); ARTERIAL BLOOD GAS HCO3 29.8 mmol/L; ARTERIAL BLOOD GAS PCO2 42.8 mmHg (35.0-45.0); ARTERIAL BLOOD GAS PO2 85.4 mmHg (80.0-100); ARTERIAL BLOOD GAS pH 7.451 (7.350-7.450)
[2016-09-21 04:19] LABS: ARTERIAL BLOOD GAS ALLEN TEST NORMAL; ARTERIAL BLOOD GAS ART SITE RIGHT RADIAL; ARTERIAL BLOOD GAS DELIVERY HEATED HIGH-FLOW NC; ARTERIAL DRAW? YES
[2016-09-21 04:41] LABS: BASOPHIL% 0.1 % (0-2.5); HEMATOCRIT 30.1 % (38.0-50.0); HEMOGLOBIN 9.9 gm/dL (13.0-16.0); LYMPHOCYTE# 0.3 X10e3 (1.0-3.5); LYMPHOCYTE% 3.1 % (17.0-45.0); MEAN CELL VOLUME 93.2 FL (83-96); MEAN CORPUSCULAR HEMOGLOBIN 30.6 PG (28-34); MEAN CORPUSCULAR HGB CONC 32.9 g/dL (30-36); MEAN PLATELET VOLUME 10.4 FL (6.5-11.5); MONOCYTE# 0.7 X10e3 (0-1.0); MONOCYTE% 7.7 % (3.0-12.0); NEUTROPHIL% 89.1 % (40-75); PLATELET COUNT 115 X10e3 (140-420); RED BLOOD COUNT 3.23 X10e (3.90-5.60); RED CELL DISTRIBUTION WIDTH 16.4 % (11.0-15.5); WHITE BLOOD COUNT 8.9 X10e3 (4.0-10.5)
[2016-09-21 04:43] LABS: DIFF IND NO
[2016-09-21 05:07] LABS: ALBUMIN SERUM 1.8 g/dL (3.5-5.0); ALKALINE PHOSPHATASE 245 U/L (32-92); ALT (SGPT) 122 U/L (10-40); AST (SGOT) 201 U/L (10-42); BLOOD UREA NITROGEN 62 mg/dL (9-23); BUN/CREATININE RATIO 68.88; CARBON DIOXIDE 29 mmol/L (22-31); CHLORIDE 99 mmol/L (100-111); CREATININE SERUM 0.9 mg/dL (0.6-1.4); GLOM FILT RATE Estimated ABOVE60 mL/min (>60); GLUCOSE FASTING 200 mg/dL (70-110); POTASSIUM 5.3 mmol/L (3.5-5.1); PROTEIN TOTAL SERUM 5.3 g/dL (6.0-8.3); SODIUM 131 mmol/L (135-145)
[2016-09-22 03:59] LABS: BASOPHIL% 0.4 % (0-2.5); DIFF IND NO; HEMATOCRIT 29.3 % (38.0-50.0); HEMOGLOBIN 9.9 gm/dL (13.0-16.0); LYMPHOCYTE# 0.2 X10e3 (1.0-3.5); LYMPHOCYTE% 2.5 % (17.0-45.0); MEAN CELL VOLUME 92.8 FL (83-96); MEAN CORPUSCULAR HEMOGLOBIN 31.2 PG (28-34); MEAN CORPUSCULAR HGB CONC 33.7 g/dL (30-36); MEAN PLATELET VOLUME 9.9 FL (6.5-11.5); MONOCYTE# 0.7 X10e3 (0-1.0); MONOCYTE% 8.5 % (3.0-12.0); NEUTROPHIL# 7.2 X10e3 (1.5-7.1); NEUTROPHIL% 88.6 % (40-75); PLATELET COUNT 101 X10e3 (140-420); RED BLOOD COUNT 3.16 X10e (3.90-5.60); RED CELL DISTRIBUTION WIDTH 16.9 % (11.0-15.5); WHITE BLOOD COUNT 8.1 X10e3 (4.0-10.5)
[2016-09-22 04:06] LABS: ARTERIAL BLD GAS O2 SATURATION 92.7 % (90.0-100.0); ARTERIAL BLOOD GAS CARBOXY HB 0.9 %sat (0.0-9.0); ARTERIAL BLOOD GAS HCO3 29.5 mmol/L; ARTERIAL BLOOD GAS MET HB 1.1 %sat (0.0-2.0); ARTERIAL BLOOD GAS PCO2 41.8 mmHg (35.0-45.0); ARTERIAL BLOOD GAS pH 7.456 (7.350-7.450)
[2016-09-22 04:10] LABS: ARTERIAL BLOOD GAS ALLEN TEST NORMAL; ARTERIAL BLOOD GAS ART SITE LEFT RADIAL; ARTERIAL BLOOD GAS DELIVERY HEATED HIGHFLOW; ARTERIAL BLOOD GAS PO2 68.1 mmHg (80.0-100); ARTERIAL DRAW? YES
[2016-09-22 04:24] LABS: ALBUMIN SERUM 1.8 g/dL (3.5-5.0); ALKALINE PHOSPHATASE 284 U/L (32-92); ALT (SGPT) 281 U/L (10-40); AST (SGOT) 449 U/L (10-42); BILIRUBIN,TOTAL 1.2 mg/dL (0.2-2.0); BLOOD UREA NITROGEN 67 mg/dL (9-23); BUN/CREATININE RATIO 74.44; CALCIUM SERUM 7.9 mg/dL (8.4-10.2); CARBON DIOXIDE 28 mmol/L (22-31); CHLORIDE 100 mmol/L (100-111); CREATININE SERUM 0.9 mg/dL (0.6-1.4); GLOM FILT RATE Estimated ABOVE60 mL/min (>60); GLUCOSE FASTING 232 mg/dL (70-110); POTASSIUM 5.2 mmol/L (3.5-5.1); PROTEIN TOTAL SERUM 5.4 g/dL (6.0-8.3); SODIUM 129 mmol/L (135-145)
[2016-09-23 05:25] LABS: BASOPHIL# 0.1 X10e3 (0-0.3); BASOPHIL% 1.2 % (0-2.5); HEMATOCRIT 33.5 % (38.0-50.0); HEMOGLOBIN 10.8 gm/dL (13.0-16.0); LYMPHOCYTE# 0.2 X10e3 (1.0-3.5); MEAN CELL VOLUME 93.5 FL (83-96); MEAN CORPUSCULAR HEMOGLOBIN 30.2 PG (28-34); MEAN CORPUSCULAR HGB CONC 32.3 g/dL (30-36); MEAN PLATELET VOLUME 10.3 FL (6.5-11.5); MONOCYTE# 0.6 X10e3 (0-1.0); MONOCYTE% 6.2 % (3.0-12.0); NEUTROPHIL# 8.7 X10e3 (1.5-7.1); NEUTROPHIL% 90.6 % (40-75); PLATELET COUNT 105 X10e3 (140-420); RED BLOOD COUNT 3.58 X10e (3.90-5.60); WHITE BLOOD COUNT 9.6 X10e3 (4.0-10.5)
[2016-09-23 05:29] LABS: DIFF IND NO
[2016-09-23 06:29] LABS: ALKALINE PHOSPHATASE 297 U/L (32-92); ALT (SGPT) 300 U/L (10-40); AST (SGOT) 273 U/L (10-42); BILIRUBIN,TOTAL 1.2 mg/dL (0.2-2.0); BLOOD UREA NITROGEN 70 mg/dL (9-23); CALCIUM SERUM 8.5 mg/dL (8.4-10.2); CARBON DIOXIDE 27 mmol/L (22-31); CHLORIDE 97 mmol/L (100-111); CREATININE SERUM 0.8 mg/dL (0.6-1.4); GLOM FILT RATE Estimated ABOVE60 mL/min (>60); GLUCOSE FASTING 189 mg/dL (70-110); POTASSIUM 5.4 mmol/L (3.5-5.1); PROTEIN TOTAL SERUM 5.4 g/dL (6.0-8.3); SODIUM 131 mmol/L (135-145)
== END 2016-09-24 10:07 | DRG 377 ==
LOC: CED 21:21 → CEDOF 09-05 02:12 → C4C 09-05 12:41 → CICCU2 09-13 04:53 → C2A 09-23 23:01
PROVIDERS: Emergency Medicine; Family Medicine; Hospitalist; Internal Medicine; Internal Medicine Cardiovascular Disease; Internal Medicine Hematology & Oncology; Internal Medicine Pulmonary Disease; Physician Assistant Medical; Urology
PROC: BW24Y0Z Computerized Tomography (CT Scan) of Chest and Abdomen using Other Contrast, Unenhanced and Enhanced (ICD-10-PCS; 2016-09-04)
PROC: 02HV33Z Insertion of Infusion Device into Superior Vena Cava, Percutaneous Approach (ICD-10-PCS; 2016-09-05)
PROC: B548ZZA Ultrasonography of Superior Vena Cava, Guidance (ICD-10-PCS; 2016-09-05)
PROC: 0T7D8DZ Dilation of Urethra with Intraluminal Device, Via Natural or Artificial Opening Endoscopic (ICD-10-PCS; 2016-09-11)
PROC: B24BZZZ Ultrasonography of Heart with Aorta (ICD-10-PCS; principal; 2016-09-13)
DX: K92.2 Gastrointestinal hemorrhage, unspecified (principal); E43 Unspecified severe protein-calorie malnutrition; J96.01 Acute respiratory failure with hypoxia; A48.3 Toxic shock syndrome; I21.4 Non-ST elevation (NSTEMI) myocardial infarction; C15.9 Malignant neoplasm of esophagus, unspecified; J15.212 Pneumonia due to Methicillin resistant Staphylococcus aureus; E77.8 Other disorders of glycoprotein metabolism; C79.9 Secondary malignant neoplasm of unspecified site; I50.31 Acute diastolic (congestive) heart failure; E87.1 Hypo-osmolality and hyponatremia; Z68.1 Body mass index [BMI] 19.9 or less, adult; N17.9 Acute kidney failure, unspecified; B19.20 Unspecified viral hepatitis C without hepatic coma; K52.9 Noninfective gastroenteritis and colitis, unspecified; F17.200 Nicotine dependence, unspecified, uncomplicated; Z87.11 Personal history of peptic ulcer disease; K74.60 Unspecified cirrhosis of liver; E86.0 Dehydration; I27.81 Cor pulmonale (chronic); N35.8 Other urethral stricture; N36.8 Other specified disorders of urethra; F39 Unspecified mood [affective] disorder; F32.9 Major depressive disorder, single episode, unspecified; F41.9 Anxiety disorder, unspecified; Z51.5 Encounter for palliative care; E87.6 Hypokalemia; D64.9 Anemia, unspecified; Z66 Do not resuscitate
CPT/HCPCS: 36415; 36600; 71010; 71260; 74000; 74177; 76705; 80048; 80053; 80061; 80076; 81003; 82308; 82533; 82550; 82553; 82803; 82947; 83605; 83690; 83735; 83880; 84132; 84484; 85025; 85027; 85610; 85730; 86850; 86900; 86901; 87086; 93005; 93306; 93970; 93971; 94640; 94660; 94760; 94761; 96361; 96374; 96375; 97110; 97163; 97167; 97530; 99285; C9113; G8978-GP; G8979-GP; G8987-GO; G8988-GO; G8989-GO; J0692; J1170; J1447; J1450; J1720; J1885; J1940; J1956; J2405; J2550; J2765; J2930; J3370; J3475; Q9967